=== PATIENT | female | born 1935 | race Caucasian/White ===

== ENCOUNTER 2019-12-06 14:07 | Observation (INO) | payer MEDICARE ==
[~2019-12-06] VITALS: Ht 162.6 cm; Wt 46.0 kg
--- NOTE | 2019-12-06 15:07 | PHYS DOC ---
Past Medical History Past Medical History: Hypertension Past Surgical History: No Surgical History Smoking Status: Former Smoker Alcohol Use: None Adult General Chief Complaint Chief Complaint: Palpitations HPI HPI Patient is a 84 year old female with history of chronic cough who presents with complaint of heart racing. Patient complaining of intermittent episodes of one or 2 seconds palpitation for the last few days without chest pain, dizziness, shortness of breath, nausea and vomiting, focal neuro deficit, diarrhea and constipation, urinary symptom. Patient complaining of chronic cough for years and states she quit smoking more than 10 years ago. Patient was seen at urgent care and had EKG that showed trigeminy PVC and abnormal chest x-ray and sent to ER for evaluation. Patient denies palpitation at arrival to ER but had heart rate of 120s. Review of Systems Review of Systems Constitutional: Denies fever or chills [] Eyes: Denies change in visual acuity, redness, or eye pain [] HENT: Denies nasal congestion or sore throat [] Respiratory: Denies shortness of breath , reports cough[] Cardiovascular: No additional information not addressed in HPI [] GI: Denies abdominal pain, nausea, vomiting, bloody stools or diarrhea [] : Denies dysuria or hematuria [] Musculoskeletal: Denies back pain or joint pain [] Integument: Denies rash or skin lesions [] Neurologic: Denies headache, focal weakness or sensory changes [] Endocrine: Denies polyuria or polydipsia [] All other systems were reviewed and found to be within normal limits, except as documented in this note. Current Medications Current Medications Current Medications Medications (Trade) Dose Ordered Sig/[facility] Start Time Stop Time Status Last Admin Dose Admin Magnesium Oxide (Magnesium Oxide) 400 mg DAILY 12/06/19 17:00 Potassium Chloride (Klor-Con) 40 meq 1X ONCE 12/06/19 16:45 12/06/19 16:46 DC Allergies Allergies Allergies Coded Allergies Type Severity Reaction Last Updated Verified No Known Drug Allergies 12/06/19 No Physical Exam Physical Exam Constitutional: Well developed, well nourished, mild distress, non-toxic appearance. [] HENT: Normocephalic, atraumatic. Eyes: PERRLA, EOMI, conjunctiva normal, no discharge. [] Neck: Normal range of motion, no tenderness, supple, no stridor. [] Cardiovascular: Tachycardia, no murmur [] Lungs & Thorax: Bilateral breath sounds clear to auscultation [] Abdomen: Bowel sounds normal, soft, no tenderness, no masses, no pulsatile masses. [] Skin: Warm, dry, no erythema, no rash. [] Back: No tenderness, no CVA tenderness. [] Extremities: No tenderness, no cyanosis, no clubbing, ROM intact, no edema. [] Neurologic: Alert and oriented X 3, no focal deficits noted. [] Psychologic: Affect normal, judgement normal, mood normal. [] Current Patient Data Vital Signs Vital Signs Date Time Temp Pulse Resp B/P (MAP) Pulse Ox O2 Delivery O2 Flow Rate FiO2 12/06/19 14:47 98.3 69 20 183/82 (115) 95 Room Air 98.3 Lab Values Laboratory Tests Test 12/06/19 14:56 12/06/19 15:24 White Blood Count 8.4 x10^3/uL (4.0-11.0) Red Blood Count 4.64 x10^6/uL (3.50-5.40) Hemoglobin 15.4 g/dL (12.0-15.5) Hematocrit 45.5 % (36.0-47.0) Mean Corpuscular Volume 98 fL (79-100) Mean Corpuscular Hemoglobin 33 pg (25-35) Mean Corpuscular Hemoglobin Concent 34 g/dL (31-37) Red Cell Distribution Width 13.5 % (11.5-14.5) Platelet Count 194 x10^3/uL (140-400) Neutrophils (%) (Auto) 81 % (31-73) H Lymphocytes (%) (Auto) 9 % (24-48) L Monocytes (%) (Auto) 9 % (0-9) Eosinophils (%) (Auto) 0 % (0-3) Basophils (%) (Auto) 1 % (0-3) Neutrophils # (Auto) 6.8 x10^3/uL (1.8-7.7) Lymphocytes # (Auto) 0.8 x10^3/uL (1.0-4.8) L Monocytes # (Auto) 0.8 x10^3/uL (0.0-1.1) Eosinophils # (Auto) 0.0 x10^3/uL (0.0-0.7) Basophils # (Auto) 0.0 x10^3/uL (0.0-0.2) Prothrombin Time 13.8 SEC (11.7-14.0) Prothrombin Time INR 1.1 (0.8-1.1) D-Dimer (Jyothi) 0.38 ug/mlFEU (0.00-0.50) Sodium Level 137 mmol/L (136-145) Potassium Level 3.3 mmol/L (3.5-5.1) L Chloride Level 97 mmol/L (98-107) L Carbon Dioxide Level 29 mmol/L (21-32) Anion Gap 11 (6-14) Blood Urea Nitrogen 15 mg/dL (7-20) Creatinine 1.0 mg/dL (0.6-1.0) Estimated GFR (Cockcroft-Gault) 52.6 BUN/Creatinine Ratio 15 (6-20) Glucose Level 158 mg/dL (70-99) H Calcium Level 9.1 mg/dL (8.5-10.1) Magnesium Level 1.7 mg/dL (1.8-2.4) L Total Bilirubin 0.7 mg/dL (0.2-1.0) Aspartate Amino Transferase (AST) 29 U/L (15-37) Alanine Aminotransferase (ALT) 35 U/L (14-59) Alkaline Phosphatase 90 U/L (46-116) Creatine Kinase 119 U/L (26-192) Troponin I Quantitative < 0.017 ng/mL (0.000-0.055) ZP-Xsw-B-Type Natriuretic Peptide 926 pg/mL (0-449) H Total Protein 7.5 g/dL (6.4-8.2) Albumin 3.3 g/dL (3.4-5.0) L Albumin/Globulin Ratio 0.8 (1.0-1.7) L Thyroid Stimulating Hormone (TSH) 0.703 uIU/mL (0.358-3.74) Lactic Acid Level 1.7 mmol/L (0.4-2.0) Laboratory Tests 12/06/19 14:56 Laboratory Tests 12/06/19 14:56 EKG EKG EKG interpreted by me. EKG at 1434 showed sinus tachycardia at rate of 1:15 beats frequent PVCs as bigeminy and PACs, possible left atrial abnormality, no abnormalities in lateral leads, no acute ST and T-wave elevation. Radiology/Procedures Radiology/Procedures [facility] [address] [place] [address] IMAGING REPORT Signed PATIENT: CORKY HENSON ACCOUNT: [id number] : 1935 LOCATION: ER AGE: 84 SEX: F EXAM STATUS: PRE ER ORD. PHYSICIAN: DARIO GOULD MD REASON: palpitation PROCEDURE: PORTABLE CHEST 1V PORTABLE CHEST 1V History: Palpitations Comparison: None. Findings: Hyperinflation. No consolidation or pleural effusion. Normal heart size. No pneumothorax. Impression: 1. Hyperinflation. 2. Otherwise, negative chest. Electronically signed by: Duane Jane DO (12/06/2019 3:24 PM) [id number] DICTATED and SIGNED BY: DUANE JANE DO DATE: 12/06/19 152 Course & Med Decision Making Course & Med Decision Making Pertinent Labs and Imaging studies reviewed. (See chart for details) Evaluation of patient in ER showed 84-year-old female patient sent from urgent care because of abdominal chest x-ray and tachycardia arrhythmia. Patient had a stable blood pressure and O2 sat laceration but had heart rate of 120s. EKG showed sinus tachycardia with frequent PVCs and PACs. Labs showed mild hypokalemia and hypomagnesemia and oral potassium and magnesium was ordered. Dr. Manzano on-call otr company driver was consulted at 1645 and recommended to admit patient for observation.Patient requiring admission for further evaluation and treatment. Discussed with Dr. Malagon who is in agreement with admission. Discussed findings and plan with patient and family, who acknowledge understanding and agreement. Dragon Disclaimer Dragon Disclaimer This electronic medical record was generated, in whole or in part, using a voice recognition dictation system. Departure Departure Impression: Primary Impression: Tachyarrhythmia Additional Impressions: Hypokalemia Hypomagnesemia CHF (congestive heart failure) Disposition: ADMITTED INPATIENT (at 1710) [facility] (Dr. Malagon accepted admission at 1709) Condition: STABLE Problem Qualifiers Additional Impressions: CHF (congestive heart failure) Heart failure type: unspecified Heart failure chronicity: unspecified Qualified Codes: I50.9 - Heart failure, unspecified DARIO GOULD MD Dec 06, 2019 15:07
[2019-12-06 15:14] LABS: BASO % 1 % (0-3); EOS % 0 % (0-3); HEMATOCRIT 45.5 % (36.0-47.0); HEMOGLOBIN 15.4 g/dL (12.0-15.5); LYMPH # 0.8 x10^3/uL (1.0-4.8); LYMPH % 9 % (24-48); MEAN CORPUSCULAR HEMOGLOBIN 33 pg (25-35); MEAN CORPUSCULAR HGB CONC 34 g/dL (31-37); MEAN CORPUSCULAR VOLUME 98 fL (79-100); MONO # 0.8 x10^3/uL (0.0-1.1); MONO % 9 % (0-9); NEUT # 6.8 x10^3/uL (1.8-7.7); NEUT % 81 % (31-73); PLATELET COUNT 194 x10^3/uL (140-400); RED BLOOD COUNT 4.64 x10^6/uL (3.50-5.40); RED CELL DISTRIBUTION WIDTH 13.5 % (11.5-14.5); WHITE BLOOD COUNT 8.4 x10^3/uL (4.0-11.0)
[2019-12-06 15:23] LABS: PROTHROMBIN TIME PATIENT 13.8 SEC (11.7-14.0)
[2019-12-06 15:26] LABS: CALCIUM 9.1 mg/dL (8.5-10.1); GFR 52.6; POTASSIUM 3.3 mmol/L (3.5-5.1)
--- NOTE | 2019-12-06 15:27 | RAD ---
PORTABLE CHEST 1V History: Palpitations Comparison: None. Findings: Hyperinflation. No consolidation or pleural effusion. Normal heart size. No pneumothorax. Impression: 1. Hyperinflation. 2. Otherwise, negative chest. Electronically signed by: Duane Jane DO (12/06/2019 3:24 PM) [id number]
[2019-12-06 15:31] LABS: D-DIMER 0.38 ug/mlFEU (0.00-0.50)
[2019-12-06 15:36] LABS: ALBUMIN 3.3 g/dL (3.4-5.0); ALBUMIN/GLOBULIN RATIO 0.8 (1.0-1.7); MAGNESIUM 1.7 mg/dL (1.8-2.4); TOTAL BILIRUBIN 0.7 mg/dL (0.2-1.0); TOTAL PROTEIN 7.5 g/dL (6.4-8.2)
[2019-12-06] MEDS ORDERED: POTASSIUM CHLORIDE 20 MEQ TABLET.ER. PO ONE ×2 (16:45→20:30)
[2019-12-06] MEDS: MAGNESIUM OXIDE 400 MG TABLET PO SCH (17:38)
--- NOTE | 2019-12-06 18:20 | PDOC1 ---
History and Physical Date of Admission Date of Admission DATE: 12/06/19 TIME: 18:20 History of Present Illness History of Present Illness Karla is a 84 year old female with history of chronic cough who presents with complaint of heart racing. Patient complaining of intermittent episodes of one or 2 seconds palpitation for the last few days without chest pain, dizziness, shortness of breath, nausea and vomiting, focal neuro deficit, diarrhea and constipation, urinary symptom. Patient complaining of chronic cough for years and states she quit smoking more than 10 years ago. Patient was seen at urgent care and had EKG that showed trigeminy PVC and abnormal chest x-ray and sent to ER for evaluation. Patient denies palpitation at arrival to ER but had heart rate of 120s. Past Medical History Cardiovascular: HTN Pulmonary: No pertinent hx GI: No pertinent hx Heme/Onc: No pertinent hx Hepatobiliary: No pertinent hx Psych: No pertinent hx Rheumatologic: No pertinent hx Infectious disease: No pertinent hx ENT: No pertinent hx Renal/: No pertinent hx Endocrine: No pertinent hx Dermatology: Basal cell, Squamous cell, Rash Social History Smoke: No ALCOHOL: none Current Problem List Problem List Problems Medical Problems: (1) CHF (congestive heart failure) Status: Acute (2) Hypokalemia Status: Acute (3) Hypomagnesemia Status: Acute (4) Tachyarrhythmia Status: Acute Current Medications Current Medications Current Medications Potassium Chloride (Klor-Con) 40 meq 1X ONCE PO Last administered on 12/06/19at 17:38; Start 12/06/19 at 16:45; Stop 12/06/19 at 16:46; Status DC Magnesium Oxide (Magnesium Oxide) 400 mg DAILY PO Last administered on 12/06/19at 17:38; Start 12/06/19 at 17:00 Magnesium Sulfate 50 ml @ 25 mls/hr 1X ONCE IV ; Start 12/06/19 at 18:30; Stop 12/06/19 at 20:29 Allergies Allergies: Coded Allergies: No Known Drug Allergies (Unverified , 12/06/19) ROS General: YES: Chills; No: Night Sweats, Fatigue, Malaise, Appetite, Other PSYCHOLOGICAL ROS: No: Anxiety, Behavioral Disorder, Concentration difficultie, Decreased libido, Depression, Disorientation, Hallucinations, Hostility, Irritablity, Memory difficulties, Mood Swings, Obsessive thoughts, Physical abuse, Sexual abuse, Sleep disturbances, Suicidal ideation, Other Eyes: No Blurry vision, No Decreased vision, No Double vision, No Dry eyes, No Excessive tearing, No Eye Pain, No Itchy Eyes, No Loss of vision, No Photophobia, No Scotomata, No Uses contacts, No Uses glasses, No Other HEENT: No: Heacaches, Visual Changes, Hearing change, Nasal congestion, Nasal discharge, Oral lesions, Sinus pain, Sore Throat, Epistaxis, Sneezing, Snoring, Tinnitus, Vertigo, Vocal changes, Other Respiratory: YES: Cough, SOB with excertion, Tachypnea; No: Hemoptysis, Orthopnea, Pleuritic Pain, Shortness of breath, Sputum Changes, Stridor, Wheezing, Other Cardiovascular: No Chest Pain, No Palpitations, No Orthopnea, No Paroxysmal Noc. Dyspnea, No Edema, No Lt Headedness, No Other Gastrointestinal: No Nausea, No Vomiting, No Abdominal Pain, No Diarrhea, No Constipation, No Melena, No Hematochezia, No Other Genitourinary: No Dysuria, No Frequency, No Incontinence, No Hematuria, No Retention, No Discharge, No Urgency, No Pain, No Flank Pain, No Other, No , No , No , No , No , No , No Musculoskeletal: Yes Joint Stiffness; No Gait Disturbance, No Joint Pain, No Joint Swelling, No Muscle Pain, No Muscular Weakness, No Pain In:, No Swelling In:, No Other Neurological: No Behavorial Changes, No Bowel/Bladder ControlChng, No Confusion, No Dizziness, No Gait Disturbance, No Headaches, No Impaired Coord/balance, No Memory Loss, No Numbness/Tingling, No Seizures, No Speech Problems, No Tremors, No Visual Changes, No Weakness, No Other Skin: Yes Dry Skin; No Eczema, No Hair Changes, No Lumps, No Mole Changes, No Mottling, No Nail Changes, No Pruritus, No Rash, No Skin Lesion Changes, No Other, No Acne Physical Exam General: Alert, Oriented X3, Cooperative, No acute distress, moderate distress HEENT: Mucous membr. moist/pink Lungs: Clear to auscultation, Normal air movement Heart: no gallops, no murmurs, irregularly irregular (tachy) Abdomen: Normal bowel sounds, Soft Extremities: No clubbing, No cyanosis, No edema, Normal pulses Skin: No breakdown, No significant lesion Neuro: Normal speech, Normal tone, Sensation intact, Other Psych/Mental Status: Mood NL Vitals Vitals Vital Signs Date Time Temp Pulse Resp B/P (MAP) Pulse Ox O2 Delivery O2 Flow Rate FiO2 12/06/19 17:07 100 22 163/70 (101) 92 Room Air 12/06/19 14:47 98.3 98.3 Labs Labs Laboratory Tests Test 12/06/19 14:56 12/06/19 15:24 White Blood Count 8.4 x10^3/uL (4.0-11.0) Red Blood Count 4.64 x10^6/uL (3.50-5.40) Hemoglobin 15.4 g/dL (12.0-15.5) Hematocrit 45.5 % (36.0-47.0) Mean Corpuscular Volume 98 fL (79-100) Mean Corpuscular Hemoglobin 33 pg (25-35) Mean Corpuscular Hemoglobin Concent 34 g/dL (31-37) Red Cell Distribution Width 13.5 % (11.5-14.5) Platelet Count 194 x10^3/uL (140-400) Neutrophils (%) (Auto) 81 % (31-73) Lymphocytes (%) (Auto) 9 % (24-48) Monocytes (%) (Auto) 9 % (0-9) Eosinophils (%) (Auto) 0 % (0-3) Basophils (%) (Auto) 1 % (0-3) Neutrophils # (Auto) 6.8 x10^3/uL (1.8-7.7) Lymphocytes # (Auto) 0.8 x10^3/uL (1.0-4.8) Monocytes # (Auto) 0.8 x10^3/uL (0.0-1.1) Eosinophils # (Auto) 0.0 x10^3/uL (0.0-0.7) Basophils # (Auto) 0.0 x10^3/uL (0.0-0.2) Prothrombin Time 13.8 SEC (11.7-14.0) Prothromb Time International Ratio 1.1 (0.8-1.1) D-Dimer (Jyothi) 0.38 ug/mlFEU (0.00-0.50) Sodium Level 137 mmol/L (136-145) Potassium Level 3.3 mmol/L (3.5-5.1) Chloride Level 97 mmol/L (98-107) Carbon Dioxide Level 29 mmol/L (21-32) Anion Gap 11 (6-14) Blood Urea Nitrogen 15 mg/dL (7-20) Creatinine 1.0 mg/dL (0.6-1.0) Estimated GFR (Cockcroft-Gault) 52.6 BUN/Creatinine Ratio 15 (6-20) Glucose Level 158 mg/dL (70-99) Calcium Level 9.1 mg/dL (8.5-10.1) Magnesium Level 1.7 mg/dL (1.8-2.4) Total Bilirubin 0.7 mg/dL (0.2-1.0) Aspartate Amino Transf (AST/SGOT) 29 U/L (15-37) Alanine Aminotransferase (ALT/SGPT) 35 U/L (14-59) Alkaline Phosphatase 90 U/L (46-116) Creatine Kinase 119 U/L (26-192) Troponin I Quantitative < 0.017 ng/mL (0.000-0.055) LL-Jee-S-Type Natriuretic Peptide 926 pg/mL (0-449) Total Protein 7.5 g/dL (6.4-8.2) Albumin 3.3 g/dL (3.4-5.0) Albumin/Globulin Ratio 0.8 (1.0-1.7) Thyroid Stimulating Hormone (TSH) 0.703 uIU/mL (0.358-3.74) Lactic Acid Level 1.7 mmol/L (0.4-2.0) Laboratory Tests Test 12/06/19 14:56 12/06/19 15:24 White Blood Count 8.4 x10^3/uL (4.0-11.0) Red Blood Count 4.64 x10^6/uL (3.50-5.40) Hemoglobin 15.4 g/dL (12.0-15.5) Hematocrit 45.5 % (36.0-47.0) Mean Corpuscular Volume 98 fL (79-100) Mean Corpuscular Hemoglobin 33 pg (25-35) Mean Corpuscular Hemoglobin Concent 34 g/dL (31-37) Red Cell Distribution Width 13.5 % (11.5-14.5) Platelet Count 194 x10^3/uL (140-400) Neutrophils (%) (Auto) 81 % (31-73) Lymphocytes (%) (Auto) 9 % (24-48) Monocytes (%) (Auto) 9 % (0-9) Eosinophils (%) (Auto) 0 % (0-3) Basophils (%) (Auto) 1 % (0-3) Neutrophils # (Auto) 6.8 x10^3/uL (1.8-7.7) Lymphocytes # (Auto) 0.8 x10^3/uL (1.0-4.8) Monocytes # (Auto) 0.8 x10^3/uL (0.0-1.1) Eosinophils # (Auto) 0.0 x10^3/uL (0.0-0.7) Basophils # (Auto) 0.0 x10^3/uL (0.0-0.2) Prothrombin Time 13.8 SEC (11.7-14.0) Prothromb Time International Ratio 1.1 (0.8-1.1) D-Dimer (Jyothi) 0.38 ug/mlFEU (0.00-0.50) Sodium Level 137 mmol/L (136-145) Potassium Level 3.3 mmol/L (3.5-5.1) Chloride Level 97 mmol/L (98-107) Carbon Dioxide Level 29 mmol/L (21-32) Anion Gap 11 (6-14) Blood Urea Nitrogen 15 mg/dL (7-20) Creatinine 1.0 mg/dL (0.6-1.0) Estimated GFR (Cockcroft-Gault) 52.6 BUN/Creatinine Ratio 15 (6-20) Glucose Level 158 mg/dL (70-99) Calcium Level 9.1 mg/dL (8.5-10.1) Magnesium Level 1.7 mg/dL (1.8-2.4) Total Bilirubin 0.7 mg/dL (0.2-1.0) Aspartate Amino Transf (AST/SGOT) 29 U/L (15-37) Alanine Aminotransferase (ALT/SGPT) 35 U/L (14-59) Alkaline Phosphatase 90 U/L (46-116) Creatine Kinase 119 U/L (26-192) Troponin I Quantitative < 0.017 ng/mL (0.000-0.055) JW-Mgd-B-Type Natriuretic Peptide 926 pg/mL (0-449) Total Protein 7.5 g/dL (6.4-8.2) Albumin 3.3 g/dL (3.4-5.0) Albumin/Globulin Ratio 0.8 (1.0-1.7) Thyroid Stimulating Hormone (TSH) 0.703 uIU/mL (0.358-3.74) Lactic Acid Level 1.7 mmol/L (0.4-2.0) VTE Prophylaxis Ordered VTE Prophylaxis Devices: No VTE Pharmacological Prophylaxi: Yes Assessment/Plan Assessment/Plan cough, dyspnea SIRS, tachycardia and tachypnea, unknown cause, check UA, TSH, t4, has hx fo prior thyroid surg in 1989 underweigth, bmi 16.9 hypokalemia hypomagnesemia, replace ckd2 ANNABEL DAMICO MD Dec 06, 2019 18:20
[2019-12-06] MEDS ORDERED: MAGNESIUM SULFATE 2GM 50 ML IV ONE (18:30)
[2019-12-06 18:35] VITALS: BP 190/90
[2019-12-06] MEDS ORDERED: guaiFENesin DM 200MG/20MG 10 ML SYRUP PO PRN (18:45)
[2019-12-06] MEDS ORDERED: METOPROLOL TART IMMED RELEASE 50 MG TABLET. PO ONE (18:45)
[2019-12-06] MEDS ORDERED: ENOXAPARIN 30 MG/0.3 ML SYRINGE. SQ SCH (21:00)
[2019-12-06] MEDS ORDERED: METOPROLOL TART IMMED RELEASE 50 MG TABLET. PO SCH (21:00)
[2019-12-06] MEDS ORDERED: FAMOTIDINE 20 MG TABLET. PO SCH (21:00)
[2019-12-06] MEDS: METOPROLOL TART IMMED RELEASE 50 MG TABLET. PO SCH (22:54)
[2019-12-06] MEDS: BENZONATATE 100 MG CAPSULE. PO SCH (22:56)
[2019-12-06 23:39] VITALS: BP 130/66
[2019-12-07 03:05] VITALS: BP 134/70
[2019-12-07 04:40] LABS: BASO % 1 % (0-3); EOS # 0.1 x10^3/uL (0.0-0.7); EOS % 1 % (0-3); HEMATOCRIT 41.1 % (36.0-47.0); LYMPH % 13 % (24-48); MEAN CORPUSCULAR HEMOGLOBIN 33 pg (25-35); MEAN CORPUSCULAR HGB CONC 34 g/dL (31-37); MEAN CORPUSCULAR VOLUME 98 fL (79-100); MONO # 1.1 x10^3/uL (0.0-1.1); MONO % 14 % (0-9); NEUT # 5.7 x10^3/uL (1.8-7.7); NEUT % 72 % (31-73); PLATELET COUNT 197 x10^3/uL (140-400); RED BLOOD COUNT 4.19 x10^6/uL (3.50-5.40); RED CELL DISTRIBUTION WIDTH 13.4 % (11.5-14.5); WHITE BLOOD COUNT 7.9 x10^3/uL (4.0-11.0)
[2019-12-07 04:51] LABS: ALBUMIN/GLOBULIN RATIO 0.9 (1.0-1.7); CALCIUM 8.5 mg/dL (8.5-10.1); CREATININE 0.7 mg/dL (0.6-1.0); GFR 79.3; POTASSIUM 4.6 mmol/L (3.5-5.1); TOTAL BILIRUBIN 0.7 mg/dL (0.2-1.0); TOTAL PROTEIN 6.3 g/dL (6.4-8.2)
[2019-12-07 07:00] VITALS: BP 141/54
[2019-12-07] MEDS ORDERED: HYDR12.58 PO (07:49)
[2019-12-07] MEDS ORDERED: ZOLP5TAB5 PO (07:49)
[2019-12-07] MEDS ORDERED: ASPI81TA50 PO (07:49)
[2019-12-07] MEDS ORDERED: ATEN25TA PO (07:49)
[2019-12-07] MEDS ORDERED: ASCO1TAB5 PO (07:49)
[2019-12-07] MEDS ORDERED: AMLO5TAB10 PO (07:49)
[2019-12-07] MEDS ORDERED: RALO60TA10 PO (07:49)
[2019-12-07] MEDS ORDERED: POTASSIUM CHLORIDE 20 MEQ TABLET.ER. PO SCH (08:00)
[2019-12-07] MEDS: MAGNESIUM OXIDE 400 MG TABLET PO SCH (08:31)
[2019-12-07] MEDS: METOPROLOL TART IMMED RELEASE 50 MG TABLET. PO SCH (08:31)
[2019-12-07] MEDS: BENZONATATE 100 MG CAPSULE. PO SCH (08:31)
[2019-12-07 11:00] VITALS: BP 147/77
--- NOTE | 2019-12-07 12:33 | PDOC2 ---
CONSULT Date of Consult Date of Consult DATE: 12/07/19 TIME: 12:27 Reason for Consult Reason for Consult: Tachyarrhythmias Referring Physician Referring Physician: Dr. Malagon Identification/Chief Complaint Chief Complaint Fast heartbeat Source Source: Chart review, Patient History of Present Illness Reason for Visit: The patient is an 84-year-old female with a history of hypertension who reported a fast heartbeat at her nursing facility yesterday. She was transported to the emergency room and found to have episodes of sinus tachycardia with rates into the 126 as well as PVCs and some episodes of trigeminy. Potassium was normal at 4.6 troponin was normal magnesium was mildly decreased at 1.7. Chest x-ray showed no acute changes. She was treated with magnesium is been monitored overnight. This morning she is feeling well. Her arrhythmias have resolved. She is on a sinus rhythm rate of 78 and is feeling well. Past Medical History Cardiovascular: HTN Pulmonary: No pertinent hx GI: No pertinent hx Heme/Onc: No pertinent hx Hepatobiliary: No pertinent hx Psych: No pertinent hx Rheumatologic: No pertinent hx Infectious disease: No pertinent hx ENT: No pertinent hx Renal/: No pertinent hx Endocrine: No pertinent hx Dermatology: Basal cell, Squamous cell, Rash Past Surgical History Past Surgical History: No pertinent history Family History Family History: Hypertension Social History No ALCOHOL: none Current Problem List Problem List Problems Medical Problems: (1) CHF (congestive heart failure) Status: Acute (2) Hypokalemia Status: Acute (3) Hypomagnesemia Status: Acute (4) Tachyarrhythmia Status: Acute Current Medications Current Medications Current Medications Potassium Chloride (Klor-Con) 40 meq 1X ONCE PO Last administered on 12/06/19at 17:38; Start 12/06/19 at 16:45; Stop 12/06/19 at 16:46; Status DC Magnesium Oxide (Magnesium Oxide) 400 mg DAILY PO Last administered on 12/07/19at 08:31; Start 12/06/19 at 17:00 Magnesium Sulfate 50 ml @ 25 mls/hr 1X ONCE IV ; Start 12/06/19 at 18:30; Stop 12/06/19 at 20:29; Status DC Metoprolol Tartrate (Lopressor) 50 mg BID PO ; Start 12/06/19 at 21:00; Stop 12/06/19 at 19:29; Status DC Metoprolol Tartrate (Lopressor) 50 mg 1X ONCE PO ; Start 12/06/19 at 18:45; Stop 12/06/19 at 18:49; Status DC Potassium Chloride (Klor-Con) 20 meq [id number] PO Last administered on 12/07/19at 08:32; Start 12/07/19 at 08:00 Famotidine (Pepcid) 20 mg QHS PO Last administered on 12/06/19at 22:57; Start 12/06/19 at 21:00 Benzonatate (Tessalon Perle) 100 mg [id number] PO Last administered on 12/07/19 08:31; Start 12/06/19 at 21:00 Guaifenesin (Robitussin Dm) 10 ml PRN Q6HRS PRN PO COUGH Last administered on 12/07/19at 08:34; Start 12/06/19 at 18:45 Enoxaparin Sodium (Lovenox Per Pharmacy Prophylaxis Dosing) 1 each PRN DAILY PRN MC SEE COMMENTS; Start 12/06/19 at 18:45 Enoxaparin Sodium (Lovenox 30mg Syringe) 30 mg Q24H SQ Last administered on 12/06/19at 23:00; Start 12/06/19 at 21:00 Metoprolol Tartrate (Lopressor) 100 mg BID PO Last administered on 12/07/19at 08:31; Start 12/06/19 at 21:00 Potassium Chloride (Klor-Con) 20 meq 1X ONCE PO Last administered on 12/06/19at 22:55; Start 12/06/19 at 20:30; Stop 12/06/19 at 20:31; Status DC Active Scripts Active Reported Nataliia-C 1,000 Mg Tablet (Ascorbate Calcium/Bioflavonoid) 1 Each Tablet 1 Each PO DAILY Aspir-Low (Aspirin) 81 Mg Tablet.dr 1 Tab PO BID Zolpidem Tartrate 5 Mg Tablet 5 Mg PO PRN QHS PRN Raloxifene HCl 60 Mg Tablet 60 Mg PO DAILY Amlodipine Besylate 5 Mg Tablet 5 Mg PO DAILY Hydrochlorothiazide Tablet (Hydrochlorothiazide) 12.5 Mg Tablet 12.5 Mg PO DAILY Atenolol 25 Mg Tablet 1 Tab PO DAILY Allergies Allergies: Coded Allergies: No Known Drug Allergies (Unverified , 12/06/19) ROS General: YES: Fatigue Cardiovascular: yes Palpitations Physical Exam General: No acute distress HEENT: Atraumatic Lungs: Clear to auscultation Heart: Regular rate Abdomen: Normal bowel sounds Vitals VITALS Vital Signs Date Time Temp Pulse Resp B/P (MAP) Pulse Ox O2 Delivery O2 Flow Rate FiO2 12/07/19 11:00 97.9 71 18 147/77 (100) 92 Room Air 97.9 Labs Labs Laboratory Tests Test 12/06/19 14:56 12/06/19 15:24 12/07/19 02:50 White Blood Count 8.4 x10^3/uL (4.0-11.0) 7.9 x10^3/uL (4.0-11.0) Red Blood Count 4.64 x10^6/uL (3.50-5.40) 4.19 x10^6/uL (3.50-5.40) Hemoglobin 15.4 g/dL (12.0-15.5) 14.0 g/dL (12.0-15.5) Hematocrit 45.5 % (36.0-47.0) 41.1 % (36.0-47.0) Mean Corpuscular Volume 98 fL (79-100) 98 fL (79-100) Mean Corpuscular Hemoglobin 33 pg (25-35) 33 pg (25-35) Mean Corpuscular Hemoglobin Concent 34 g/dL (31-37) 34 g/dL (31-37) Red Cell Distribution Width 13.5 % (11.5-14.5) 13.4 % (11.5-14.5) Platelet Count 194 x10^3/uL (140-400) 197 x10^3/uL (140-400) Neutrophils (%) (Auto) 81 % (31-73) 72 % (31-73) Lymphocytes (%) (Auto) 9 % (24-48) 13 % (24-48) Monocytes (%) (Auto) 9 % (0-9) 14 % (0-9) Eosinophils (%) (Auto) 0 % (0-3) 1 % (0-3) Basophils (%) (Auto) 1 % (0-3) 1 % (0-3) Neutrophils # (Auto) 6.8 x10^3/uL (1.8-7.7) 5.7 x10^3/uL (1.8-7.7) Lymphocytes # (Auto) 0.8 x10^3/uL (1.0-4.8) 1.0 x10^3/uL (1.0-4.8) Monocytes # (Auto) 0.8 x10^3/uL (0.0-1.1) 1.1 x10^3/uL (0.0-1.1) Eosinophils # (Auto) 0.0 x10^3/uL (0.0-0.7) 0.1 x10^3/uL (0.0-0.7) Basophils # (Auto) 0.0 x10^3/uL (0.0-0.2) 0.0 x10^3/uL (0.0-0.2) Prothrombin Time 13.8 SEC (11.7-14.0) Prothromb Time International Ratio 1.1 (0.8-1.1) D-Dimer (Jyothi) 0.38 ug/mlFEU (0.00-0.50) Sodium Level 137 mmol/L (136-145) 139 mmol/L (136-145) Potassium Level 3.3 mmol/L (3.5-5.1) 4.6 mmol/L (3.5-5.1) Chloride Level 97 mmol/L (98-107) 101 mmol/L (98-107) Carbon Dioxide Level 29 mmol/L (21-32) 29 mmol/L (21-32) Anion Gap 11 (6-14) 9 (6-14) Blood Urea Nitrogen 15 mg/dL (7-20) 16 mg/dL (7-20) Creatinine 1.0 mg/dL (0.6-1.0) 0.7 mg/dL (0.6-1.0) Estimated GFR (Cockcroft-Gault) 52.6 79.3 BUN/Creatinine Ratio 15 (6-20) 23 (6-20) Glucose Level 158 mg/dL (70-99) 102 mg/dL (70-99) Calcium Level 9.1 mg/dL (8.5-10.1) 8.5 mg/dL (8.5-10.1) Magnesium Level 1.7 mg/dL (1.8-2.4) Total Bilirubin 0.7 mg/dL (0.2-1.0) 0.7 mg/dL (0.2-1.0) Aspartate Amino Transf (AST/SGOT) 29 U/L (15-37) 31 U/L (15-37) Alanine Aminotransferase (ALT/SGPT) 35 U/L (14-59) 38 U/L (14-59) Alkaline Phosphatase 90 U/L (46-116) 79 U/L (46-116) Creatine Kinase 119 U/L (26-192) Troponin I Quantitative < 0.017 ng/mL (0.000-0.055) OB-Lru-J-Type Natriuretic Peptide 926 pg/mL (0-449) Total Protein 7.5 g/dL (6.4-8.2) 6.3 g/dL (6.4-8.2) Albumin 3.3 g/dL (3.4-5.0) 3.0 g/dL (3.4-5.0) Albumin/Globulin Ratio 0.8 (1.0-1.7) 0.9 (1.0-1.7) Thyroid Stimulating Hormone (TSH) 0.703 uIU/mL (0.358-3.74) Lactic Acid Level 1.7 mmol/L (0.4-2.0) Free Thyroxine 1.49 ng/dL (0.76-1.46) Laboratory Tests Test 12/06/19 14:56 12/06/19 15:24 12/07/19 02:50 White Blood Count 8.4 x10^3/uL (4.0-11.0) 7.9 x10^3/uL (4.0-11.0) Red Blood Count 4.64 x10^6/uL (3.50-5.40) 4.19 x10^6/uL (3.50-5.40) Hemoglobin 15.4 g/dL (12.0-15.5) 14.0 g/dL (12.0-15.5) Hematocrit 45.5 % (36.0-47.0) 41.1 % (36.0-47.0) Mean Corpuscular Volume 98 fL (79-100) 98 fL (79-100) Mean Corpuscular Hemoglobin 33 pg (25-35) 33 pg (25-35) Mean Corpuscular Hemoglobin Concent 34 g/dL (31-37) 34 g/dL (31-37) Red Cell Distribution Width 13.5 % (11.5-14.5) 13.4 % (11.5-14.5) Platelet Count 194 x10^3/uL (140-400) 197 x10^3/uL (140-400) Neutrophils (%) (Auto) 81 % (31-73) 72 % (31-73) Lymphocytes (%) (Auto) 9 % (24-48) 13 % (24-48) Monocytes (%) (Auto) 9 % (0-9) 14 % (0-9) Eosinophils (%) (Auto) 0 % (0-3) 1 % (0-3) Basophils (%) (Auto) 1 % (0-3) 1 % (0-3) Neutrophils # (Auto) 6.8 x10^3/uL (1.8-7.7) 5.7 x10^3/uL (1.8-7.7) Lymphocytes # (Auto) 0.8 x10^3/uL (1.0-4.8) 1.0 x10^3/uL (1.0-4.8) Monocytes # (Auto) 0.8 x10^3/uL (0.0-1.1) 1.1 x10^3/uL (0.0-1.1) Eosinophils # (Auto) 0.0 x10^3/uL (0.0-0.7) 0.1 x10^3/uL (0.0-0.7) Basophils # (Auto) 0.0 x10^3/uL (0.0-0.2) 0.0 x10^3/uL (0.0-0.2) Prothrombin Time 13.8 SEC (11.7-14.0) Prothromb Time International Ratio 1.1 (0.8-1.1) D-Dimer (Jyothi) 0.38 ug/mlFEU (0.00-0.50) Sodium Level 137 mmol/L (136-145) 139 mmol/L (136-145) Potassium Level 3.3 mmol/L (3.5-5.1) 4.6 mmol/L (3.5-5.1) Chloride Level 97 mmol/L (98-107) 101 mmol/L (98-107) Carbon Dioxide Level 29 mmol/L (21-32) 29 mmol/L (21-32) Anion Gap 11 (6-14) 9 (6-14) Blood Urea Nitrogen 15 mg/dL (7-20) 16 mg/dL (7-20) Creatinine 1.0 mg/dL (0.6-1.0) 0.7 mg/dL (0.6-1.0) Estimated GFR (Cockcroft-Gault) 52.6 79.3 BUN/Creatinine Ratio 15 (6-20) 23 (6-20) Glucose Level 158 mg/dL (70-99) 102 mg/dL (70-99) Calcium Level 9.1 mg/dL (8.5-10.1) 8.5 mg/dL (8.5-10.1) Magnesium Level 1.7 mg/dL (1.8-2.4) Total Bilirubin 0.7 mg/dL (0.2-1.0) 0.7 mg/dL (0.2-1.0) Aspartate Amino Transf (AST/SGOT) 29 U/L (15-37) 31 U/L (15-37) Alanine Aminotransferase (ALT/SGPT) 35 U/L (14-59) 38 U/L (14-59) Alkaline Phosphatase 90 U/L (46-116) 79 U/L (46-116) Creatine Kinase 119 U/L (26-192) Troponin I Quantitative < 0.017 ng/mL (0.000-0.055) RV-Wwu-V-Type Natriuretic Peptide 926 pg/mL (0-449) Total Protein 7.5 g/dL (6.4-8.2) 6.3 g/dL (6.4-8.2) Albumin 3.3 g/dL (3.4-5.0) 3.0 g/dL (3.4-5.0) Albumin/Globulin Ratio 0.8 (1.0-1.7) 0.9 (1.0-1.7) Thyroid Stimulating Hormone (TSH) 0.703 uIU/mL (0.358-3.74) Lactic Acid Level 1.7 mmol/L (0.4-2.0) Free Thyroxine 1.49 ng/dL (0.76-1.46) Images Images Chest x-ray x-ray shows no acute changes. Assessment/Plan Assessment/Plan 1. Palpitations and tachycardia arrhythmias. Initial EKG and monitoring shows sinus tachycardia along with increased PVCs and episodes of trigeminy. Patient's magnesium was mildly decreased. Her magnesium was replaced and she was continued on baseline treatment. This morning she is feeling well. Her rhythm is stable. Will increase activities and present medications. We'll follow-up as an outpatient. 2. Hypertension. Blood pressures under better control. Will monitor as the patient increases her activities. Thank you for allowing us to participate in the care of your patient. KAROL CASTAÑEDA MD Dec 07, 2019 12:33
[2019-12-07] MEDS ORDERED: ZOLPIDEM 5 MG TABLET. PO PRN (13:45)
[2019-12-07] MEDS ORDERED: MAGN400C PO (13:47)
[2019-12-07] MEDS ORDERED: hydroCHLOROthiazide 12.5 MG CAPSULE PO SCH (14:00)
[2019-12-07] MEDS ORDERED: RALOXIFENE 60 MG TABLET. PO SCH (14:00)
[2019-12-07] MEDS ORDERED: amLODIPine BESYLATE 5 MG TABLET PO SCH (14:00)
[2019-12-07] MEDS ORDERED: ATENOLOL 25 MG TABLET. PO SCH (14:00)
--- NOTE | 2019-12-07 14:00 | NUR ---
Discharge Note: CORKY HENSON Discharge instructions and discharge home medications reviewed with Patient and a copy given. All questions have been answered and understanding verbalized. The following instructions and handouts were given: follow ups Discontinued lines and drains:20 R AC Patient discharged to home with self care
--- NOTE | 2019-12-07 14:20 | PDOC3 ---
Discharge Summary Visit Information Date of Admission: Dec 06, 2019 Date of Discharge: Dec 07, 2019 Admitting Diagnosis Comment: Palpitations Essential hypertension Hypomagnesemia replace Chronic kidney disease stage II Final Diagnosis Problems Medical Problems: (1) CHF (congestive heart failure) Status: Acute (2) Hypokalemia Status: Acute (3) Hypomagnesemia Status: Acute (4) Tachyarrhythmia Status: Acute Brief Hospital Course Allergies Allergies Coded Allergies Type Severity Reaction Last Updated Verified No Known Drug Allergies 12/06/19 No Vital Signs Vital Signs Date Time Temp Pulse Resp B/P (MAP) Pulse Ox O2 Delivery O2 Flow Rate FiO2 12/07/19 11:00 97.9 71 18 147/77 (100) 92 Room Air 97.9 Lab Results Laboratory Tests Test 12/06/19 14:56 12/06/19 15:24 12/07/19 02:50 White Blood Count 8.4 x10^3/uL (4.0-11.0) 7.9 x10^3/uL (4.0-11.0) Red Blood Count 4.64 x10^6/uL (3.50-5.40) 4.19 x10^6/uL (3.50-5.40) Hemoglobin 15.4 g/dL (12.0-15.5) 14.0 g/dL (12.0-15.5) Hematocrit 45.5 % (36.0-47.0) 41.1 % (36.0-47.0) Mean Corpuscular Volume 98 fL (79-100) 98 fL (79-100) Mean Corpuscular Hemoglobin 33 pg (25-35) 33 pg (25-35) Mean Corpuscular Hemoglobin Concent 34 g/dL (31-37) 34 g/dL (31-37) Red Cell Distribution Width 13.5 % (11.5-14.5) 13.4 % (11.5-14.5) Platelet Count 194 x10^3/uL (140-400) 197 x10^3/uL (140-400) Neutrophils (%) (Auto) 81 % (31-73) 72 % (31-73) Lymphocytes (%) (Auto) 9 % (24-48) 13 % (24-48) Monocytes (%) (Auto) 9 % (0-9) 14 % (0-9) Eosinophils (%) (Auto) 0 % (0-3) 1 % (0-3) Basophils (%) (Auto) 1 % (0-3) 1 % (0-3) Neutrophils # (Auto) 6.8 x10^3/uL (1.8-7.7) 5.7 x10^3/uL (1.8-7.7) Lymphocytes # (Auto) 0.8 x10^3/uL (1.0-4.8) 1.0 x10^3/uL (1.0-4.8) Monocytes # (Auto) 0.8 x10^3/uL (0.0-1.1) 1.1 x10^3/uL (0.0-1.1) Eosinophils # (Auto) 0.0 x10^3/uL (0.0-0.7) 0.1 x10^3/uL (0.0-0.7) Basophils # (Auto) 0.0 x10^3/uL (0.0-0.2) 0.0 x10^3/uL (0.0-0.2) Prothrombin Time 13.8 SEC (11.7-14.0) Prothromb Time International Ratio 1.1 (0.8-1.1) D-Dimer (Jyothi) 0.38 ug/mlFEU (0.00-0.50) Sodium Level 137 mmol/L (136-145) 139 mmol/L (136-145) Potassium Level 3.3 mmol/L (3.5-5.1) 4.6 mmol/L (3.5-5.1) Chloride Level 97 mmol/L (98-107) 101 mmol/L (98-107) Carbon Dioxide Level 29 mmol/L (21-32) 29 mmol/L (21-32) Anion Gap 11 (6-14) 9 (6-14) Blood Urea Nitrogen 15 mg/dL (7-20) 16 mg/dL (7-20) Creatinine 1.0 mg/dL (0.6-1.0) 0.7 mg/dL (0.6-1.0) Estimated GFR (Cockcroft-Gault) 52.6 79.3 BUN/Creatinine Ratio 15 (6-20) 23 (6-20) Glucose Level 158 mg/dL (70-99) 102 mg/dL (70-99) Calcium Level 9.1 mg/dL (8.5-10.1) 8.5 mg/dL (8.5-10.1) Magnesium Level 1.7 mg/dL (1.8-2.4) Total Bilirubin 0.7 mg/dL (0.2-1.0) 0.7 mg/dL (0.2-1.0) Aspartate Amino Transf (AST/SGOT) 29 U/L (15-37) 31 U/L (15-37) Alanine Aminotransferase (ALT/SGPT) 35 U/L (14-59) 38 U/L (14-59) Alkaline Phosphatase 90 U/L (46-116) 79 U/L (46-116) Creatine Kinase 119 U/L (26-192) Troponin I Quantitative < 0.017 ng/mL (0.000-0.055) SV-Pgi-P-Type Natriuretic Peptide 926 pg/mL (0-449) Total Protein 7.5 g/dL (6.4-8.2) 6.3 g/dL (6.4-8.2) Albumin 3.3 g/dL (3.4-5.0) 3.0 g/dL (3.4-5.0) Albumin/Globulin Ratio 0.8 (1.0-1.7) 0.9 (1.0-1.7) Thyroid Stimulating Hormone (TSH) 0.703 uIU/mL (0.358-3.74) Lactic Acid Level 1.7 mmol/L (0.4-2.0) Free Thyroxine 1.49 ng/dL (0.76-1.46) Laboratory Tests Test 12/06/19 14:56 12/06/19 15:24 12/07/19 02:50 White Blood Count 8.4 x10^3/uL (4.0-11.0) 7.9 x10^3/uL (4.0-11.0) Red Blood Count 4.64 x10^6/uL (3.50-5.40) 4.19 x10^6/uL (3.50-5.40) Hemoglobin 15.4 g/dL (12.0-15.5) 14.0 g/dL (12.0-15.5) Hematocrit 45.5 % (36.0-47.0) 41.1 % (36.0-47.0) Mean Corpuscular Volume 98 fL (79-100) 98 fL (79-100) Mean Corpuscular Hemoglobin 33 pg (25-35) 33 pg (25-35) Mean Corpuscular Hemoglobin Concent 34 g/dL (31-37) 34 g/dL (31-37) Red Cell Distribution Width 13.5 % (11.5-14.5) 13.4 % (11.5-14.5) Platelet Count 194 x10^3/uL (140-400) 197 x10^3/uL (140-400) Neutrophils (%) (Auto) 81 % (31-73) 72 % (31-73) Lymphocytes (%) (Auto) 9 % (24-48) 13 % (24-48) Monocytes (%) (Auto) 9 % (0-9) 14 % (0-9) Eosinophils (%) (Auto) 0 % (0-3) 1 % (0-3) Basophils (%) (Auto) 1 % (0-3) 1 % (0-3) Neutrophils # (Auto) 6.8 x10^3/uL (1.8-7.7) 5.7 x10^3/uL (1.8-7.7) Lymphocytes # (Auto) 0.8 x10^3/uL (1.0-4.8) 1.0 x10^3/uL (1.0-4.8) Monocytes # (Auto) 0.8 x10^3/uL (0.0-1.1) 1.1 x10^3/uL (0.0-1.1) Eosinophils # (Auto) 0.0 x10^3/uL (0.0-0.7) 0.1 x10^3/uL (0.0-0.7) Basophils # (Auto) 0.0 x10^3/uL (0.0-0.2) 0.0 x10^3/uL (0.0-0.2) Prothrombin Time 13.8 SEC (11.7-14.0) Prothromb Time International Ratio 1.1 (0.8-1.1) D-Dimer (Jyothi) 0.38 ug/mlFEU (0.00-0.50) Sodium Level 137 mmol/L (136-145) 139 mmol/L (136-145) Potassium Level 3.3 mmol/L (3.5-5.1) 4.6 mmol/L (3.5-5.1) Chloride Level 97 mmol/L (98-107) 101 mmol/L (98-107) Carbon Dioxide Level 29 mmol/L (21-32) 29 mmol/L (21-32) Anion Gap 11 (6-14) 9 (6-14) Blood Urea Nitrogen 15 mg/dL (7-20) 16 mg/dL (7-20) Creatinine 1.0 mg/dL (0.6-1.0) 0.7 mg/dL (0.6-1.0) Estimated GFR (Cockcroft-Gault) 52.6 79.3 BUN/Creatinine Ratio 15 (6-20) 23 (6-20) Glucose Level 158 mg/dL (70-99) 102 mg/dL (70-99) Calcium Level 9.1 mg/dL (8.5-10.1) 8.5 mg/dL (8.5-10.1) Magnesium Level 1.7 mg/dL (1.8-2.4) Total Bilirubin 0.7 mg/dL (0.2-1.0) 0.7 mg/dL (0.2-1.0) Aspartate Amino Transf (AST/SGOT) 29 U/L (15-37) 31 U/L (15-37) Alanine Aminotransferase (ALT/SGPT) 35 U/L (14-59) 38 U/L (14-59) Alkaline Phosphatase 90 U/L (46-116) 79 U/L (46-116) Creatine Kinase 119 U/L (26-192) Troponin I Quantitative < 0.017 ng/mL (0.000-0.055) RK-Zee-G-Type Natriuretic Peptide 926 pg/mL (0-449) Total Protein 7.5 g/dL (6.4-8.2) 6.3 g/dL (6.4-8.2) Albumin 3.3 g/dL (3.4-5.0) 3.0 g/dL (3.4-5.0) Albumin/Globulin Ratio 0.8 (1.0-1.7) 0.9 (1.0-1.7) Thyroid Stimulating Hormone (TSH) 0.703 uIU/mL (0.358-3.74) Lactic Acid Level 1.7 mmol/L (0.4-2.0) Free Thyroxine 1.49 ng/dL (0.76-1.46) Brief Hospital Course The patient is an 84-year-old female with a history of hypertension who reported a fast heartbeat at her nursing facility yesterday. She was transported to the emergency room and found to have episodes of sinus tachycardia with rates into the 126 as well as PVCs and some episodes of trigeminy. Potassium was normal at 4.6 troponin was normal magnesium was mildly decreased at 1.7. Chest x-ray showed no acute changes. She was treated with magnesium is been monitored overnight. This morning she is feeling well. Her arrhythmias have resolved. She is on a sinus rhythm rate of 78 and is feeling well. She was in consultation by cardiology who recommended following up in the outpatient no further diagnostic workup was deemed appropriate at the present time. Patient was in good spirits as far as her cough goes patient does not seem to have an active infectious process. I encouraged her to monitor for symptoms of GERD postnasal drip that could prompt her dry coughing spells. No pleurisy reported, the patient in her and notch understanding of all the instructions. Physical exam Lungs are clear to auscultation bilaterally with good inspiratory effort and Cardia vascular S1-S2 regular rhythm no murmurs calls or rubs Neuro cranial nerves II-12 intact motor or sensory deficits were appreciated Discharge Information Condition at Discharge: Improved Follow Up: Weeks Disposition/Orders: D/C to Home Scheduled Amlodipine Besylate (Amlodipine Besylate) 5 Mg Tablet, 5 MG PO DAILY for htn, (Reported) Entered as Reported by: MARVIN HAMMONDS on 12/07/19748 Last Action: Continued on 12/07/191337 by CAROLYN RODRIGUEZ MD Ascorbate Calcium/Bioflavonoid (Nataliia-C 1,000 Mg Tablet) 1 Each Tablet, 1 EACH PO DAILY for vitamin, (Reported) Entered as Reported by: MARVIN HAMMONDS on 12/07/19748 Last Action: Converted on 12/07/191337 by CAROLYN RODRIGUEZ MD Aspirin (Aspir-Low) 81 Mg Tablet.dr, 1 TAB PO BID for antiplatelet, #30 Ref 3 (Reported) Entered as Reported by: MARVIN HAMMONDS on 12/07/19748 Last Taken: Unknown Dose on Unknown Date & Time Last Action: Continued on 12/07/191337 by CAROLYN RODRIGUEZ MD Atenolol (Atenolol) 25 Mg Tablet, 1 TAB PO DAILY for tachycardia, #30 Ref 5 (Reported) Entered as Reported by: MARVIN HAMMONDS on 12/07/19748 Last Taken: Unknown Dose on Unknown Date & Time Last Action: Continued on 12/07/191337 by CAROLYN RODRIGUEZ MD Hydrochlorothiazide (Hydrochlorothiazide Tablet) 12.5 Mg Tablet, 12.5 MG PO DAILY for blood pressure, Ref 0 (Reported) Entered as Reported by: MARVIN HAMMONDS on 12/07/19748 Last Taken: Unknown Dose on Unknown Date & Time Last Action: Converted on 12/07/191337 by CAROLYN RODRIGUEZ MD Magnesium Oxide (Magnesium) 400 Mg Capsule, 1 CAP PO DAILY for supplement for 30 Days, #30 Ref 0 Prescribed by: CAROLYN RODRIGUEZ MD on 12/07/191346 Raloxifene HCl (Raloxifene HCl) 60 Mg Tablet, 60 MG PO DAILY for hormone replacement, (Reported) Entered as Reported by: MARVIN HAMMONDS on 12/07/19748 Last Taken: Unknown Dose on Unknown Date & Time Last Action: Continued on 12/07/191337 by CAROLYN RODRIGUEZ MD Scheduled PRN Zolpidem Tartrate (Zolpidem Tartrate) 5 Mg Tablet, 5 MG PO PRN QHS PRN for INSOMNIA, Ref 0 (Reported) Entered as Reported by: MARVIN HAMMONDS on 12/07/19748 Last Taken: Unknown Dose on Unknown Date & Time Last Action: Continued on 12/07/191337 by MD JENNIFER ELI HECTOR M MD Dec 07, 2019 14:20
[2019-12-07] MEDS ORDERED: ASPIRIN ENTERIC COATED 81 MG TABLET.DR. PO SCH (21:00)
[2019-12-08] MEDS ORDERED: ASCORBIC ACID 500 MG TABLET PO SCH (09:00)
--- NOTE | 2019-12-09 06:08 | EKG ---
[facility] [address] [place] [address] Test Date: 2019-12-06 Test Time: 14:34:27 Pat Name: CORKY HENSON Department: Room: Gender: F [employer]: : [id number] Requested By: DARIO GOULD Order Number: [id number] Reading MD: Measurements Intervals [place] Rate: 115 P: 62 [place]: 114 QRS: 25 QRSD: 80 T: 63 QT: 314 QTc: 436 Interpretive Statements SINUS TACHYCARDIA VENTRICULAR PREMATURE COMPLEX(ES) ATRIAL PREMATURE COMPLEX(ES), BIGEMINY POSSIBLE LEFT ATRIAL ABNORMALITY T ABNORMALITY IN HIGH LATERAL LEADS ABNORMAL ECG RI6.01 No previous ECG available for comparison
== END 2019-12-07 14:00 | disposition home or self-care (01) ==
LOC: ER 14:07 → ED HOLD 16:46 → ER 18:33 → 2 NORTH 18:45
PROVIDERS: ADMIT Internal Medicine; ATTEND Internal Medicine
DX: I13.0 Hypertensive heart and chronic kidney disease with heart failure and stage 1 through stage 4 chronic kidney disease, or unspecified chronic kidney disease (principal); N18.2 Chronic kidney disease, stage 2 (mild); I50.9 Heart failure, unspecified; R65.10 Systemic inflammatory response syndrome (SIRS) of non-infectious origin without acute organ dysfunction; E83.42 Hypomagnesemia; R00.0 Tachycardia, unspecified; E87.6 Hypokalemia; R63.6 Underweight; Z68.1 Body mass index [BMI] 19.9 or less, adult; Z87.891 Personal history of nicotine dependence
CPT/HCPCS: 36415; 71045; 80053; 82533; 82550; 83605; 83735; 83880; 84439; 84443; 84484; 85025; 85379; 85610; 93005; 96372; 99284; G0378; J1650; G0379

== ENCOUNTER 2019-12-11 01:52 | Inpatient (IN) | payer MEDICARE ==
[~2019-12-11] VITALS: Ht 160 cm; Wt 46.3 kg
[~2019-12-11 01:52] MED LIST: AMLO5TAB10 PO; ASCO1TAB5 PO; ASPI81TA50 PO; ATEN25TA PO; HYDR12.58 PO; MAGN400C PO; RALO60TA10 PO; ZOLP5TAB5 PO
[2019-12-11 02:38] LABS: BASO % 0 % (0-3); EOS # 0.2 x10^3/uL (0.0-0.7); EOS % 3 % (0-3); HEMATOCRIT 40.5 % (36.0-47.0); HEMOGLOBIN 13.5 g/dL (12.0-15.5); LYMPH % 14 % (24-48); MEAN CORPUSCULAR HEMOGLOBIN 33 pg (25-35); MEAN CORPUSCULAR HGB CONC 33 g/dL (31-37); MEAN CORPUSCULAR VOLUME 98 fL (79-100); MONO # 0.9 x10^3/uL (0.0-1.1); MONO % 12 % (0-9); NEUT # 5.4 x10^3/uL (1.8-7.7); NEUT % 71 % (31-73); PLATELET COUNT 236 x10^3/uL (140-400); RED BLOOD COUNT 4.13 x10^6/uL (3.50-5.40); RED CELL DISTRIBUTION WIDTH 13.5 % (11.5-14.5); WHITE BLOOD COUNT 7.5 x10^3/uL (4.0-11.0)
--- NOTE | 2019-12-11 03:02 | RAD ---
CHEST AP ONLY Clinical Indication: Shortness of air. Comparison: AP chest 12/06/2019. Findings: The cardiomediastinal silhouette is normal. Lungs are hyperexpanded. Lungs are clear. There is no pneumothorax. No pleural effusion is appreciated. No acute bone abnormality. IMPRESSION: No acute cardiopulmonary process. Electronically signed by: Dyllan Ruiz MD (12/11/2019 3:00 AM) [id number]
--- NOTE | 2019-12-11 03:30 | PHYS DOC ---
Past Medical History Past Medical History: Hypertension Past Surgical History: No Surgical History Smoking Status: Former Smoker Alcohol Use: None Adult General Chief Complaint Chief Complaint: RAPID HEART RATE HPI HPI Patient is a 84 year old female history of palpitations, A. fib and hypomagnesemia who presents with generalized weakness and palpitations starting 10 hours prior to ED arrival. Patient was admitted to this facility last week for the same was noted to be on trigeminy. Patient bigeminy on ED arrival today. Patient is on antiarrhythmic medication is compliant with treatment. Denies dizziness lightheadedness, chest pain, shortness of breath. Denies increased leg pain or swelling. No other acute symptoms or complaints. Additional history obtained from the patient's family members at bedside.[] Review of Systems Review of Systems ROS as per HPI. All other systems were reviewed and found to be within normal limits, except as documented in this note. Current Medications Current Medications Current Medications Medications (Trade) Dose Ordered Sig/Kenzie Start Time Stop Time Status Last Admin Dose Admin Magnesium Sulfate 50 ml @ 25 mls/hr 1X ONCE 12/11/19 04:45 12/11/19 06:44 Allergies Allergies Allergies Coded Allergies Type Severity Reaction Last Updated Verified No Known Drug Allergies 12/06/19 No Physical Exam Physical Exam Constitutional: Well developed, well nourished, no acute distress, non-toxic appearance. [] HENT: Normocephalic, atraumatic, bilateral external ears normal, oropharynx moist, no oral exudates, nose normal. [] Eyes: PERRLA, EOMI, conjunctiva normal, no discharge. [] Neck: Normal range of motion, no tenderness, supple, no stridor. [] Cardiovascular: Tachycardia, frequent ectopy[] Lungs & Thorax: Bilateral breath sounds clear to auscultation [] Abdomen: Bowel sounds normal. [] Skin: Warm, dry, no erythema, no rash. [] Back: No tenderness. [] Extremities: No tenderness. [] Neurologic: Alert and oriented X 3, normal motor function, normal sensory function, no focal deficits noted. [] Psychologic: Affect normal, judgement normal, mood normal. [] Current Patient Data Vital Signs Vital Signs Date Time Temp Pulse Resp B/P (MAP) Pulse Ox O2 Delivery O2 Flow Rate FiO2 12/11/19 01:55 98.4 17 147/77 (100) 97 Nasal Cannula 2.0 98.4 Lab Values Laboratory Tests Test 12/11/19 02:28 12/11/19 03:45 White Blood Count 7.5 x10^3/uL (4.0-11.0) Red Blood Count 4.13 x10^6/uL (3.50-5.40) Hemoglobin 13.5 g/dL (12.0-15.5) Hematocrit 40.5 % (36.0-47.0) Mean Corpuscular Volume 98 fL (79-100) Mean Corpuscular Hemoglobin 33 pg (25-35) Mean Corpuscular Hemoglobin Concent 33 g/dL (31-37) Red Cell Distribution Width 13.5 % (11.5-14.5) Platelet Count 236 x10^3/uL (140-400) Neutrophils (%) (Auto) 71 % (31-73) Lymphocytes (%) (Auto) 14 % (24-48) L Monocytes (%) (Auto) 12 % (0-9) H Eosinophils (%) (Auto) 3 % (0-3) Basophils (%) (Auto) 0 % (0-3) Neutrophils # (Auto) 5.4 x10^3/uL (1.8-7.7) Lymphocytes # (Auto) 1.0 x10^3/uL (1.0-4.8) Monocytes # (Auto) 0.9 x10^3/uL (0.0-1.1) Eosinophils # (Auto) 0.2 x10^3/uL (0.0-0.7) Basophils # (Auto) 0.0 x10^3/uL (0.0-0.2) Sodium Level 134 mmol/L (136-145) L Potassium Level 3.8 mmol/L (3.5-5.1) Chloride Level 99 mmol/L (98-107) Carbon Dioxide Level 31 mmol/L (21-32) Anion Gap 4 (6-14) L Blood Urea Nitrogen 15 mg/dL (7-20) Creatinine 0.7 mg/dL (0.6-1.0) Estimated GFR (Cockcroft-Gault) 79.3 BUN/Creatinine Ratio 21 (6-20) H Glucose Level 115 mg/dL (70-99) H Calcium Level 8.7 mg/dL (8.5-10.1) Magnesium Level 1.7 mg/dL (1.8-2.4) L Total Bilirubin 0.3 mg/dL (0.2-1.0) Aspartate Amino Transferase (AST) 24 U/L (15-37) Alanine Aminotransferase (ALT) 28 U/L (14-59) Alkaline Phosphatase 67 U/L (46-116) Troponin I Quantitative < 0.017 ng/mL (0.000-0.055) GS-Xwe-U-Type Natriuretic Peptide 742 pg/mL (0-449) H Total Protein 6.4 g/dL (6.4-8.2) Albumin 2.7 g/dL (3.4-5.0) L Albumin/Globulin Ratio 0.7 (1.0-1.7) L Thyroid Stimulating Hormone (TSH) 1.068 uIU/mL (0.358-3.74) Laboratory Tests 12/11/19 02:28 Laboratory Tests 12/11/19 03:45 EKG EKG [EKG: Bigeminy, tachycardia,] Radiology/Procedures Radiology/Procedures [CXR: ] Course & Med Decision Making Course & Med Decision Making Pertinent Labs and Imaging studies reviewed. (See chart for details) Bigeminy. Magnesium replaced. Will admit to the hospitalist service with] cardiology consult. Dragon Disclaimer Dragon Disclaimer This electronic medical record was generated, in whole or in part, using a voice recognition dictation system. Departure Departure Impression: Primary Impression: Palpitations Additional Impression: Tachyarrhythmia Disposition: ADMITTED INPATIENT Condition: STABLE Referrals: MONI PARDO (PCP) Problem Qualifiers MAURICIO PARDO DO Dec 11, 2019 03:30
[2019-12-11 04:06] LABS: CALCIUM 8.7 mg/dL (8.5-10.1); CREATININE 0.7 mg/dL (0.6-1.0); GFR 79.3; POTASSIUM 3.8 mmol/L (3.5-5.1)
[2019-12-11 04:12] LABS: ALBUMIN 2.7 g/dL (3.4-5.0); ALBUMIN/GLOBULIN RATIO 0.7 (1.0-1.7); MAGNESIUM 1.7 mg/dL (1.8-2.4); TOTAL BILIRUBIN 0.3 mg/dL (0.2-1.0); TOTAL PROTEIN 6.4 g/dL (6.4-8.2)
[2019-12-11] MEDS ORDERED: MAGNESIUM SULFATE 2GM 50 ML IV ONE (04:45)
[2019-12-11] MEDS ORDERED: ONDANSETRON PF 4 MG/2 ML VIAL. IV PRN ×2 (06:00→17:00)
--- NOTE | 2019-12-11 06:15 | EKG ---
[facility] [address] [place] [address] Test Date: 2019-12-11 Test Time: 02:08:26 Pat Name: CORKY HENSON Department: Room: Gender: F Cabinetmaker Apprentice: : [id number] Requested By: MAURICIO PARDO Order Number: [id number] Reading MD: Measurements Intervals [place] Rate: 99 P: 90 VA: 100 QRS: 41 QRSD: 82 T: 36 QT: 404 QTc: 518 Interpretive Statements SINUS RHYTHM ATRIAL PREMATURE COMPLEX(ES), BIGEMINY LEFT ATRIAL ABNORMALITY INCOMPLETE RIGHT BUNDLE BRANCH BLOCK PROLONGED QT ABNORMAL ECG RI6.01 No previous ECG available for comparison
[2019-12-11] MEDS ORDERED: MULT-245 PO (08:05)
[2019-12-11] MEDS ORDERED: [UNRECOGNIZED DRUG - CODE] PO (08:05)
[2019-12-11] MEDS ORDERED: CALC1TAB PO (08:05)
--- NOTE | 2019-12-11 08:35 | PDOC2 ---
CHANTALE GUILLORY CHIEF RELAY TESTER 12/11/19 0835: CARDIAC CONSULT DATE OF CONSULT Date of Consult DATE: 12/11/19 TIME: 08:29 REASON FOR CONSULT Reason for Consult: Palpitations REFERRING PHYSICIAN Referring Physician: Chris SOURCE Source: Caregiver (son), Chart review, Patient HISTORY OF PRESENT ILLNESS HISTORY OF PRESENT ILLNESS This is a pleasant 84 yo female admitted for complains of feeling tired and occasional palpitations. No chest pain per se but feels like her heart is skipping. She has been having this on and off in the last 2 weeks and actually was here recently and noted with frequent PVCs. Reports no SOA, dizziness or passing out. Reports no hx of CAD, recent fever or chills and no hx of CVA. She does have partial thyroidectomy and unsure if she is taking replacement She also has been having dry coughing spells and started taking robitussin but unsure if this has decongestants. Also she drinks about 4-5 cups of coffee a day. She has been feeling tired lately and also she has not been drinking and eating well, son noted she eats sometimes once a day. She takes her BP meds regularly. Denies any heartburn. No recent falls or any injury. Upon admission she was noted again with frequent PVCs. PAST MEDICAL HISTORY Cardiovascular: HTN, Other (PVCs) Pulmonary: No pertinent hx CENTRAL NERVOUS SYSTEM: Other (No pertinent history) GI: No pertinent hx Heme/Onc: No pertinent hx Hepatobiliary: No pertinent hx Psych: No pertinent hx Musculoskeletal: Osteoarthritis Infectious disease: No pertinent hx ENT: Other (glaucoma) Renal/: UTI Endocrine: Hypothyroidism, Osteoporosis Dermatology: Other (skin CA with removal) PAST SURGICAL HISTORY Past Surgical History: Cataract Removal, Other (skin CA removal; thyroidectomy) SOCIAL HISTORY Smoke: No ALCOHOL: none Drugs: None Lives: with Family CURRENT MEDICATIONS CURRENT MEDICATIONS Current Medications Medications (Trade) Dose Ordered Sig/Kenzie Route PRN Reason Start Time Stop Time Status Last Admin Dose Admin Magnesium Sulfate 50 ml @ 25 mls/hr 1X ONCE IV 12/11/19 04:45 12/11/19 06:44 DC 12/11/19 07:00 ALLERGIES ALLERGIES: Coded Allergies: No Known Drug Allergies (Unverified , 12/06/19) ROS Review of System 14 point ROS evaluated with pertinent positives noted per HPI PHYSICAL EXAM General: Alert, Oriented X3, Cooperative, No acute distress HEENT: Atraumatic, Mucous membr. moist/pink Lungs: Clear to auscultation, Normal air movement Heart: Regular rate (SR), Normal S1, Normal S2, Other (2/6 systolic murmur to LLs border) Abdomen: Soft, No tenderness Extremities: No cyanosis, No edema Skin: No breakdown, No significant lesion Neuro: Normal speech, Sensation intact Psych/Mental Status: Mental status NL, Mood NL MUSCULOSKELETAL: Osteoarthritic changes both hands VITALS/I&O VITALS/I&O: Vital Signs Date Time Temp Pulse Resp B/P (MAP) Pulse Ox O2 Delivery O2 Flow Rate FiO2 12/11/19 07:42 99.0 101 20 93 99.0 12/11/19 01:55 147/77 (100) Nasal Cannula 2.0 LABS Lab: Laboratory Tests Test 12/11/19 02:28 12/11/19 03:45 White Blood Count 7.5 x10^3/uL (4.0-11.0) Red Blood Count 4.13 x10^6/uL (3.50-5.40) Hemoglobin 13.5 g/dL (12.0-15.5) Hematocrit 40.5 % (36.0-47.0) Mean Corpuscular Volume 98 fL (79-100) Mean Corpuscular Hemoglobin 33 pg (25-35) Mean Corpuscular Hemoglobin Concent 33 g/dL (31-37) Red Cell Distribution Width 13.5 % (11.5-14.5) Platelet Count 236 x10^3/uL (140-400) Neutrophils (%) (Auto) 71 % (31-73) Lymphocytes (%) (Auto) 14 % (24-48) L Monocytes (%) (Auto) 12 % (0-9) H Eosinophils (%) (Auto) 3 % (0-3) Basophils (%) (Auto) 0 % (0-3) Neutrophils # (Auto) 5.4 x10^3/uL (1.8-7.7) Lymphocytes # (Auto) 1.0 x10^3/uL (1.0-4.8) Monocytes # (Auto) 0.9 x10^3/uL (0.0-1.1) Eosinophils # (Auto) 0.2 x10^3/uL (0.0-0.7) Basophils # (Auto) 0.0 x10^3/uL (0.0-0.2) Sodium Level 134 mmol/L (136-145) L Potassium Level 3.8 mmol/L (3.5-5.1) Chloride Level 99 mmol/L (98-107) Carbon Dioxide Level 31 mmol/L (21-32) Anion Gap 4 (6-14) L Blood Urea Nitrogen 15 mg/dL (7-20) Creatinine 0.7 mg/dL (0.6-1.0) Estimated GFR (Cockcroft-Gault) 79.3 BUN/Creatinine Ratio 21 (6-20) H Glucose Level 115 mg/dL (70-99) H Calcium Level 8.7 mg/dL (8.5-10.1) Magnesium Level 1.7 mg/dL (1.8-2.4) L Total Bilirubin 0.3 mg/dL (0.2-1.0) Aspartate Amino Transferase (AST) 24 U/L (15-37) Alanine Aminotransferase (ALT) 28 U/L (14-59) Alkaline Phosphatase 67 U/L (46-116) Troponin I Quantitative < 0.017 ng/mL (0.000-0.055) MB-Jsr-F-Type Natriuretic Peptide 742 pg/mL (0-449) H Total Protein 6.4 g/dL (6.4-8.2) Albumin 2.7 g/dL (3.4-5.0) L Albumin/Globulin Ratio 0.7 (1.0-1.7) L Thyroid Stimulating Hormone (TSH) 1.068 uIU/mL (0.358-3.74) Laboratory Tests 12/11/19 02:28 Laboratory Tests 12/11/19 03:45 ASSESSMENT/PLAN ASSESSMENT/PLAN 1. Palpitations: due to PVCs 2. Fatigue: potentially related to poor calorie intake 3. Bigeminal unifocal PVCs 4. Mild hypopmagnesemia 5. Allergic rhinitis/postnasal drip with dry cough. Defer to PCP 6. HTN: controlled 7. Partial thyroidectomy: unclear if taking replacement but TSH on goal Recommendations 1. Mg replacement 2. TTE and check lipids. Check UA. 3. MCOT to be arrange to note PVC burden 4. Dietitian consult, discussed increase caloric intake, hydration adequacy and minimizing caffeine intake and avoidance of decongestants. 5. Change atenolol and intensify BB dosing via metoprolol. 6. Stop HCTZ. May continue home norvasc pending BP trend 7. Potentially outpt ischemic workup is a consideration pending her tests and any evolution of her symptomatology KENZIE LEONE MD 12/12/19 0840: CARDIAC CONSULT ASSESSMENT/PLAN ASSESSMENT/PLAN Late entry for 12/11/2019. Pt. seen and examined. Agree with above REGISTERED LAND SURVEYOR note. No significant cardiac pain. Normal exam. TTE wnl. Supportive care. Ok to DC. Thanks CHANTALE GUILLORY APRN Dec 11, 2019 08:35 KENZIE LEONE MD Dec 12, 2019 08:40
[2019-12-11] MEDS ORDERED: METOPROLOL TART IMMED RELEASE 50 MG TABLET. PO ONE (09:15)
--- NOTE | 2019-12-11 09:16 | PDOC1 ---
History and Physical Date of Admission Date of Admission DATE: 12/11/19 TIME: 09:16 Identification/Chief Complaint Chief Complaint SEEN IN ER WITH PALPITATIONS, WEAKNESS 84 year old female history of palpitations, A. fib and hypomagnesemia who presents with generalized weakness and palpitations starting 10 hours prior to ED arrival. ///was admitted to this facility last week for the same was noted to be on trigeminy. Patient gina on ED arrival today. is on antiarrhythmic medication is compliant with treatment. Denies dizziness lightheadedness, chest pain, shortness of breath. Denies increased leg pain or swelling. No other acute symptoms or complaints. Usually drinks 3-4 cups of coffee a day Past Medical History Past Medical History Past Medical History Past Medical History Past Medical History: Hypertension Past Surgical History: No Surgical History Smoking Status: Former Smoker Alcohol Use: None fhx htn Cardiovascular: HTN Pulmonary: No pertinent hx GI: No pertinent hx Heme/Onc: No pertinent hx Hepatobiliary: No pertinent hx Psych: No pertinent hx Rheumatologic: No pertinent hx Infectious disease: No pertinent hx Renal/: No pertinent hx Endocrine: No pertinent hx Past Surgical History Past Surgical History: No pertinent history Family History Family History: Hypertension Social History Smoke: No ALCOHOL: none Drugs: None Current Medications Current Medications Current Medications Magnesium Sulfate 50 ml @ 25 mls/hr 1X ONCE IV Last administered on 12/11/19at 07:00; Start 12/11/19 at 04:45; Stop 12/11/19 at 06:44; Status DC Ondansetron HCl (Zofran) 4 mg PRN Q8HRS PRN IV NAUSEA/VOMITING; Start 12/11/19 at 06:00; Stop 12/12/19 at 05:59 Metoprolol Tartrate (Lopressor) 50 mg 1X ONCE PO ; Start 12/11/19 at 09:15; Stop 12/11/19 at 09:16 Active Scripts Active Magnesium (Magnesium Oxide) 400 Mg Capsule 1 Cap PO DAILY 30 Days Reported Multi Vitamin Daily (Multivitamin) 1 Each Tablet 1 Tab PO DAILY 30 Days [place]-3 + Vitamin D3 Tab Chew (Om-3/Dha/Epa/Fish Oil/Vit D3) 1 Each Tab.chew 1 Each PO BID Caltrate 600 + D Tablet (Calcium Carbonate/Vitamin D3) 1 Each Tablet 1 Each PO BID Nataliia-C 1,000 Mg Tablet (Ascorbate Calcium/Bioflavonoid) 1 Each Tablet 1 Each PO DAILY Aspir-Low (Aspirin) 81 Mg Tablet.dr 1 Tab PO BID Zolpidem Tartrate 5 Mg Tablet 5 Mg PO PRN QHS PRN Raloxifene HCl 60 Mg Tablet 60 Mg PO DAILY Amlodipine Besylate 5 Mg Tablet 5 Mg PO DAILY Hydrochlorothiazide Tablet (Hydrochlorothiazide) 12.5 Mg Tablet 12.5 Mg PO DAILY Atenolol 25 Mg Tablet 1 Tab PO DAILY Allergies Allergies: Coded Allergies: No Known Drug Allergies (Unverified , 12/06/19) ROS Review of System Review of Systems Review of Systems ROS as per HPI. 14 PT systems were reviewed and found to be within normal limits, except as documented General: YES: Fatigue PSYCHOLOGICAL ROS: No: Anxiety, Behavioral Disorder, Concentration difficultie, Decreased libido, Depression, Disorientation, Hallucinations, Hostility, Irritablity, Memory difficulties, Mood Swings, Obsessive thoughts, Physical abuse, Sexual abuse, Sleep disturbances, Suicidal ideation, Other HEENT: No: Heacaches, Visual Changes, Hearing change, Nasal congestion, Nasal discharge, Oral lesions, Sinus pain, Sore Throat, Epistaxis, Sneezing, Snoring, Tinnitus, Vertigo, Vocal changes, Other ALLERGY AND IMMUNOLOGY: No: Hives, Insect Bite Sensitivity, Itchy/Watery Eyes, Nasal Congestion, Post Nasal Drip, Seasonal Allergies, Other Hematological and Lymphatic: No: Bleeding Problems, Blood Clots, Blood Transfusions, Brusing, Night Sweats, Pallor, Swollen Lymph Nodes, Other Respiratory: YES: Shortness of breath Cardiovascular: yes Palpitations Gastrointestinal: No Nausea, No Vomiting, No Abdominal Pain, No Diarrhea, No Constipation, No Melena, No Hematochezia, No Other Musculoskeletal: Yes Joint Stiffness Skin: Yes Dry Skin; No Eczema, No Hair Changes, No Lumps, No Mole Changes, No Mottling, No Nail Changes, No Pruritus, No Rash, No Skin Lesion Changes, No Other, No Acne Physical Exam Physical Exam Physical Exam Physical Exam Constitutional: Well developed, well nourished, no acute distress, non-toxic appearance. [] HENT: Normocephalic, atraumatic, bilateral external ears normal, oropharynx moist, no oral exudates, nose normal. [] Eyes: PERRLA, EOMI, conjunctiva normal, no discharge. [] Neck: Normal range of motion, no tenderness, supple, no stridor. [] Cardiovascular: Tachycardia, frequent ectopy ON MONITOR [] Lungs & Thorax: Bilateral breath sounds clear to auscultation [] Abdomen: Bowel sounds normal. [] Skin: Warm, dry, no erythema, no rash. [] Back: No tenderness. [] Extremities: No tenderness. [] Neurologic: Alert and oriented X 3, normal motor function, normal sensory function, no focal deficits noted. [] Psychologic: Affect normal, judgment normal, mood normal. [] General: Alert, Oriented X3, Cooperative, No acute distress HEENT: Atraumatic, EOMI, Mucous membr. moist/pink Breasts: Not examined Abdomen: Normal bowel sounds, Soft Neuro: Normal speech, Cranial nerves 3-12 NL Psych/Mental Status: Mental status NL, Mood NL Vitals Vitals Vital Signs Date Time Temp Pulse Resp B/P (MAP) Pulse Ox O2 Delivery O2 Flow Rate FiO2 12/11/19 07:42 99.0 101 20 93 99.0 12/11/19 01:55 147/77 (100) Nasal Cannula 2.0 Labs Labs Laboratory Tests Test 12/11/19 02:28 12/11/19 03:45 White Blood Count 7.5 x10^3/uL (4.0-11.0) Red Blood Count 4.13 x10^6/uL (3.50-5.40) Hemoglobin 13.5 g/dL (12.0-15.5) Hematocrit 40.5 % (36.0-47.0) Mean Corpuscular Volume 98 fL (79-100) Mean Corpuscular Hemoglobin 33 pg (25-35) Mean Corpuscular Hemoglobin Concent 33 g/dL (31-37) Red Cell Distribution Width 13.5 % (11.5-14.5) Platelet Count 236 x10^3/uL (140-400) Neutrophils (%) (Auto) 71 % (31-73) Lymphocytes (%) (Auto) 14 % (24-48) Monocytes (%) (Auto) 12 % (0-9) Eosinophils (%) (Auto) 3 % (0-3) Basophils (%) (Auto) 0 % (0-3) Neutrophils # (Auto) 5.4 x10^3/uL (1.8-7.7) Lymphocytes # (Auto) 1.0 x10^3/uL (1.0-4.8) Monocytes # (Auto) 0.9 x10^3/uL (0.0-1.1) Eosinophils # (Auto) 0.2 x10^3/uL (0.0-0.7) Basophils # (Auto) 0.0 x10^3/uL (0.0-0.2) Sodium Level 134 mmol/L (136-145) Potassium Level 3.8 mmol/L (3.5-5.1) Chloride Level 99 mmol/L (98-107) Carbon Dioxide Level 31 mmol/L (21-32) Anion Gap 4 (6-14) Blood Urea Nitrogen 15 mg/dL (7-20) Creatinine 0.7 mg/dL (0.6-1.0) Estimated GFR (Cockcroft-Gault) 79.3 BUN/Creatinine Ratio 21 (6-20) Glucose Level 115 mg/dL (70-99) Calcium Level 8.7 mg/dL (8.5-10.1) Magnesium Level 1.7 mg/dL (1.8-2.4) Total Bilirubin 0.3 mg/dL (0.2-1.0) Aspartate Amino Transf (AST/SGOT) 24 U/L (15-37) Alanine Aminotransferase (ALT/SGPT) 28 U/L (14-59) Alkaline Phosphatase 67 U/L (46-116) Troponin I Quantitative < 0.017 ng/mL (0.000-0.055) CJ-Uwn-S-Type Natriuretic Peptide 742 pg/mL (0-449) Total Protein 6.4 g/dL (6.4-8.2) Albumin 2.7 g/dL (3.4-5.0) Albumin/Globulin Ratio 0.7 (1.0-1.7) Thyroid Stimulating Hormone (TSH) 1.068 uIU/mL (0.358-3.74) Laboratory Tests Test 12/11/19 02:28 12/11/19 03:45 White Blood Count 7.5 x10^3/uL (4.0-11.0) Red Blood Count 4.13 x10^6/uL (3.50-5.40) Hemoglobin 13.5 g/dL (12.0-15.5) Hematocrit 40.5 % (36.0-47.0) Mean Corpuscular Volume 98 fL (79-100) Mean Corpuscular Hemoglobin 33 pg (25-35) Mean Corpuscular Hemoglobin Concent 33 g/dL (31-37) Red Cell Distribution Width 13.5 % (11.5-14.5) Platelet Count 236 x10^3/uL (140-400) Neutrophils (%) (Auto) 71 % (31-73) Lymphocytes (%) (Auto) 14 % (24-48) Monocytes (%) (Auto) 12 % (0-9) Eosinophils (%) (Auto) 3 % (0-3) Basophils (%) (Auto) 0 % (0-3) Neutrophils # (Auto) 5.4 x10^3/uL (1.8-7.7) Lymphocytes # (Auto) 1.0 x10^3/uL (1.0-4.8) Monocytes # (Auto) 0.9 x10^3/uL (0.0-1.1) Eosinophils # (Auto) 0.2 x10^3/uL (0.0-0.7) Basophils # (Auto) 0.0 x10^3/uL (0.0-0.2) Sodium Level 134 mmol/L (136-145) Potassium Level 3.8 mmol/L (3.5-5.1) Chloride Level 99 mmol/L (98-107) Carbon Dioxide Level 31 mmol/L (21-32) Anion Gap 4 (6-14) Blood Urea Nitrogen 15 mg/dL (7-20) Creatinine 0.7 mg/dL (0.6-1.0) Estimated GFR (Cockcroft-Gault) 79.3 BUN/Creatinine Ratio 21 (6-20) Glucose Level 115 mg/dL (70-99) Calcium Level 8.7 mg/dL (8.5-10.1) Magnesium Level 1.7 mg/dL (1.8-2.4) Total Bilirubin 0.3 mg/dL (0.2-1.0) Aspartate Amino Transf (AST/SGOT) 24 U/L (15-37) Alanine Aminotransferase (ALT/SGPT) 28 U/L (14-59) Alkaline Phosphatase 67 U/L (46-116) Troponin I Quantitative < 0.017 ng/mL (0.000-0.055) RZ-Ssk-N-Type Natriuretic Peptide 742 pg/mL (0-449) Total Protein 6.4 g/dL (6.4-8.2) Albumin 2.7 g/dL (3.4-5.0) Albumin/Globulin Ratio 0.7 (1.0-1.7) Thyroid Stimulating Hormone (TSH) 1.068 uIU/mL (0.358-3.74) Images Images Pulmonary Valve PV Peak Velocity 65.4cm/s Tricuspid Valve TR P. Velocity 313cm/s RAP ESTIMATE 3mmHg TR Peak Gr. 39mmHg RVSP 42mmHg Pulmonary Vein S1 Velocity 59.7cm/s D2 Velocity 41.4cm/s PVa duration 129msec LEFT VENTRICLE The left ventricle is normal size. There is normal left ventricular wall th ickness. The left ventricular systolic function is normal and the ejection fraction is within normal range. The Ejection Fraction is 60-65%. There is normal LV segmental wall motion. Transmitral Doppler flow pattern is normal for age. There is no ventricular septal defect visualized. RIGHT VENTRICLE The right ventricle is normal size. The right ventricular systolic function is n ormal. ATRIA The left atrium size is normal. The right atrium size is normal. The interatrial septum is intact with no evidence for an atrial septal defect or patent foramen ovale as noted on 2-D or Doppler imaging. AORTIC VALVE The aortic valve is mildly thickened but opens well. Doppler and Color Flow revealed no significant aortic regurgitation. There is no significant aortic valvular stenosis. MITRAL VALVE The mitral valve is normal in structure and function. There is no mitral valve stenosis. Doppler and Color-flow revealed trace mitral regurgitation. TRICUSPID VALVE The tricuspid valve is normal in structure and function. Doppler and Color Flow revealed trace tricuspid regurgitation. PAP is estimated at 42 mmHg. There is no tricuspid valve stenosis. PULMONIC VALVE Doppler and Color Flow revealed trace pulmonic valvular regurgitation. There is no pulmonic valvular stenosis. GREAT VESSELS The aortic root is normal in size. The ascending aorta is normal in size. The IVC is normal in size and collapses >50% with inspiration. PERICARDIAL EFFUSION There is no pleural effusion. There is no evidence of significant pericardial effusion. Critical Notification Critical Value: No <Conclusion> The left ventricular systolic function is normal and the ejection fraction is within normal range. The Ejection Fraction is 60-65%. There is normal LV segmental wall motion. Signed by : Kenzie Leone, Electronically Approved : 12/11/2019 13:51:12 DICTATED and SIGNED BY: KENZIE LEONE MD DATE: 12/11/19 1341 VTE Prophylaxis Ordered VTE Prophylaxis Devices: Yes VTE Pharmacological Prophylaxi: Yes Assessment/Plan Assessment/Plan impression Palpitations generalized weakness Essential hypertension Hypomagnesemia replace Chronic kidney disease stage II PLAN ECHO ADMIT TELE CARDIOLOGY CONSULT REDUCE CAFFEINE INTAKE MCOT to be arrange to note PVC burden change to atenolol, d/c metoprolol dvt prophylaxis ESUA REYNOLDS MD Dec 11, 2019 09:16
[2019-12-11 11:37] LABS: CHOLESTEROL/HDL RATIO 1.7
--- NOTE | 2019-12-11 13:51 | CARD ---
MR#: [id number] Date of Study: 12/11/2019 Ordering Physician: CHANTALE GUILLORY, Referring Physician: CHANTALE GUILLORY, Tech: Cb Cee SHANNON APPROVED REPORT EXAM: Two-dimensional and M-mode echocardiogram with Doppler and color Doppler. Other Information Quality : GoodHR: 77bpm Rhythm : PVC's INDICATION Palpitations RISK FACTORS Hypertension 2D DIMENSIONS RVDd3.2 (2.9-3.5cm)Left Atrium(2D)3.1 (1.6-4.0cm) IVSd0.9 (0.7-1.1cm)Aortic Root(2D)2.3 (2.0-3.7cm) LVDd3.6 (3.9-5.9cm)LVOT Diameter1.8 (1.8-2.4cm) PWd0.8 (0.7-1.1cm)LVDs2.5 (2.5-4.0cm) FS (%) 30.7 %SV31.3 ml LVEF(%)59.3 (>50%) Aortic Valve AoV Peak Chinedu.107.5cm/Kusum Peak GR.4.6mmHg LVOT Peak Chinedu.88.3cm/sAVA (VMAX)2.02cm2 Mitral Valve MV E Bjmtsyag88.0cm/sMV DECEL [id number] MV A Wbfcakne75.3cm/sE/A Ratio1.2 MV A [id number] Pulmonary Valve PV Peak Yafwfjee75.4cm/s Tricuspid Valve TR P. Dywdkuhq838jj/sRAP [id number] TR Peak Gr.[id number] Pulmonary Vein S1 Axmnhqii22.7cm/sD2 Xbknhrim44.4cm/s PVa [id number] LEFT VENTRICLE The left ventricle is normal size. There is normal left ventricular wall thickness. The left ventricu lar systolic function is normal and the ejection fraction is within normal range. The Ejection Fracti on is 60-65%. There is normal LV segmental wall motion. Transmitral Doppler flow pattern is normal fo r age. There is no ventricular septal defect visualized. RIGHT VENTRICLE The right ventricle is normal size. The right ventricular systolic function is normal. ATRIA The left atrium size is normal. The right atrium size is normal. The interatrial septum is intact wit h no evidence for an atrial septal defect or patent foramen ovale as noted on 2-D or Doppler imaging. AORTIC VALVE The aortic valve is mildly thickened but opens well. Doppler and Color Flow revealed no significant a ortic regurgitation. There is no significant aortic valvular stenosis. MITRAL VALVE The mitral valve is normal in structure and function. There is no mitral valve stenosis. Doppler and Color-flow revealed trace mitral regurgitation. TRICUSPID VALVE The tricuspid valve is normal in structure and function. Doppler and Color Flow revealed trace tricus pid regurgitation. PAP is estimated at 42 mmHg. There is no tricuspid valve stenosis. PULMONIC VALVE Doppler and Color Flow revealed trace pulmonic valvular regurgitation. There is no pulmonic valvular stenosis. GREAT VESSELS The aortic root is normal in size. The ascending aorta is normal in size. The IVC is normal in size a nd collapses >50% with inspiration. PERICARDIAL EFFUSION There is no pleural effusion. There is no evidence of significant pericardial effusion. Critical Notification Critical Value: No <Conclusion> The left ventricular systolic function is normal and the ejection fraction is within normal range. Th e Ejection Fraction is 60-65%. There is normal LV segmental wall motion. Signed by : Josh Muro, Electronically Approved : 12/11/2019 13:51:12
[2019-12-11 15:02] LABS: BILIRUBIN,URINE NEGATIVE (NEG); CLARITY,URINE TURBID; COLOR,URINE YELLOW; NITRITE,URINE NEGATIVE (NEG); PROTEIN,URINE NEGATIVE (NEG-TRACE); UROBILINOGEN,URINE 0.2 mg/dL (0.2 mg/dL)
[2019-12-11 15:20] LABS: BACTERIA,URINE 0 /HPF (0-FEW); RBC,URINE 0 /HPF (0-2); WBC,URINE 0 /HPF (0-4)
[2019-12-11 15:21] LABS: AMORPHOUS SEDIMENT,UR PRESENT /HPF
[2019-12-11] MEDS ORDERED: guaiFENesin ORAL 200 MG/10 ML LIQUID. PO PRN (17:00)
[2019-12-11] MEDS ORDERED: LORazepam 0.5 MG TABLET PO PRN (17:00)
[2019-12-11] MEDS ORDERED: ALBUTEROL SULFATE 2.5 MG/3 ML NEBU. NEB PRN (17:00)
[2019-12-11] MEDS ORDERED: ACETAMINOPHEN 325 MG TABLET. PO PRN (17:00)
[2019-12-11] MEDS ORDERED: DOCUSATE SODIUM 100 MG CAPSULE. PO PRN (17:00)
[2019-12-11] MEDS ORDERED: 0.9 % SODIUM CHLORIDE 10 ML DISP.SYRIN. IV PRN (17:00)
[2019-12-11] MEDS ORDERED: MAG HYDROX/ALUMINUM HYD/SIMETH 30 ML ORAL.SUSP PO PRN (17:00)
[2019-12-11] MEDS ORDERED: ZOLPIDEM 5 MG TABLET. PO PRN (17:00)
[2019-12-11] MEDS: ENOXAPARIN 40 MG/0.4 ML SYRINGE. SQ SCH (18:33)
[2019-12-11] MEDS: METOPROLOL TART IMMED RELEASE 50 MG TABLET. PO SCH (22:19)
[2019-12-11] MEDS: OMEGA-3 FATTY ACIDS/FISH OIL 1,000 MG CAPSULE. PO SCH (22:19)
[2019-12-11] MEDS: ASPIRIN ENTERIC COATED 81 MG TABLET.DR. PO SCH (22:20)
[2019-12-11 23:35] VITALS: BP 135/75
[2019-12-12 03:32] VITALS: BP 142/86
[2019-12-12 07:59] VITALS: BP 152/60
[2019-12-12] MEDS: amLODIPine BESYLATE 5 MG TABLET PO SCH (09:00)
[2019-12-12] MEDS: METOPROLOL TART IMMED RELEASE 50 MG TABLET. PO SCH ×2 (09:00→21:50)
[2019-12-12] MEDS: RALOXIFENE 60 MG TABLET. PO SCH (09:49)
[2019-12-12] MEDS: MAGNESIUM OXIDE 400 MG TABLET PO SCH ×2 (09:49→21:50)
[2019-12-12] MEDS: ASPIRIN ENTERIC COATED 81 MG TABLET.DR. PO SCH ×2 (09:50→21:50)
[2019-12-12] MEDS: ATENOLOL 25 MG TABLET. PO SCH (09:50)
[2019-12-12] MEDS: OMEGA-3 FATTY ACIDS/FISH OIL 1,000 MG CAPSULE. PO SCH ×2 (09:50→21:49)
[2019-12-12] MEDS: MULTIVITAMIN with MINERAL TABLET. PO SCH (09:51)
[2019-12-12] MEDS: ASCORBIC ACID 500 MG TABLET PO SCH (09:51)
--- NOTE | 2019-12-12 10:09 | NUR ---
SS following for discharge planning. SS reviewed pt chart. Pt is from home with spouse and is currently on room air. SS will continue to follow for discharge planning.
--- NOTE | 2019-12-12 11:27 | PDOC ---
PROGRESS NOTES History of Present Illness History of Present Illness VTE Prophylaxis Ordered VTE Prophylaxis Devices: Yes VTE Pharmacological Prophylaxi: Yes Assessment/Plan Assessment/Plan impression Palpitations generalized weakness Essential hypertension Hypomagnesemia replace Chronic kidney disease stage II bradycardia, monitor PLAN ECHO ADMIT TELE CARDIOLOGY following REDUCE CAFFEINE INTAKE [facility]OT to be arrange to note PVC burden change to atenolol, d/c metoprolol dvt prophylaxis mag-ox 400mg po bid Vitals Vitals Vital Signs Date Time Temp Pulse Resp B/P (MAP) Pulse Ox O2 Delivery O2 Flow Rate FiO2 12/12/19 09:50 43 152/60 12/12/19 07:59 98.3 16 94 Room Air 98.3 12/11/19 18:41 Physical Exam General: Alert, Oriented X3, Cooperative, No acute distress Heart: Regular rate (SR), Normal S1, Normal S2, Other (2/6 systolic murmur to LLs border) Abdomen: Normal bowel sounds, Soft Extremities: No cyanosis, No edema Skin: No breakdown, No significant lesion Labs LABS Home Environment Type * House Physical Barriers in Home Environment * Single Step * Greater than 4 steps ADL Assistance Required Prior to Admission * Independent Mobility Assistance Required Prior to Admission * Independent Patient's IADLs Prior to Admission * Driving * Laundry * Housekeeping * Shopping * Meal preparation * House/lawn maintenance IADL Assistance Provided By * Spouse Level of Consciousness * Alert Oriented to: * Person * Place * Time * Situation Behavior * Cooperative Activity Tolerance * Good No Further Skilled P.T. Intervention Required * Eval only-No PT Needs Discharge Recommendations * Home independent Discharge Recommendation Comments * no PT indicated, no mobility concerns Laboratory Tests Test 12/11/19 14:45 Urine Collection Type Unknown Urine Color Yellow Urine Clarity Turbid Urine pH 8.0 Urine Specific [place] 1.020 Urine Protein Negative mg/dL (NEG-TRACE) Urine Glucose (UA) Negative mg/dL (NEG) Urine Ketones (Stick) Negative mg/dL (NEG) Urine Blood Negative (NEG) Urine Nitrite Negative (NEG) Urine Bilirubin Negative (NEG) Urine Urobilinogen Dipstick 0.2 mg/dL (0.2 mg/dL) Urine Leukocyte Esterase Small (NEG) Urine RBC 0 /HPF (0-2) Urine WBC 0 /HPF (0-4) Urine Amorphous Sediment Present /HPF Urine Bacteria 0 /HPF (0-FEW) Comment Review of Relevant I have reviewed the following items jhonny (where applicable) has been applied. Labs Laboratory Tests Test 12/11/19 02:28 12/11/19 03:45 12/11/19 14:45 White Blood Count 7.5 x10^3/uL (4.0-11.0) Red Blood Count 4.13 x10^6/uL (3.50-5.40) Hemoglobin 13.5 g/dL (12.0-15.5) Hematocrit 40.5 % (36.0-47.0) Mean Corpuscular Volume 98 fL (79-100) Mean Corpuscular Hemoglobin 33 pg (25-35) Mean Corpuscular Hemoglobin Concent 33 g/dL (31-37) Red Cell Distribution Width 13.5 % (11.5-14.5) Platelet Count 236 x10^3/uL (140-400) Neutrophils (%) (Auto) 71 % (31-73) Lymphocytes (%) (Auto) 14 % (24-48) Monocytes (%) (Auto) 12 % (0-9) Eosinophils (%) (Auto) 3 % (0-3) Basophils (%) (Auto) 0 % (0-3) Neutrophils # (Auto) 5.4 x10^3/uL (1.8-7.7) Lymphocytes # (Auto) 1.0 x10^3/uL (1.0-4.8) Monocytes # (Auto) 0.9 x10^3/uL (0.0-1.1) Eosinophils # (Auto) 0.2 x10^3/uL (0.0-0.7) Basophils # (Auto) 0.0 x10^3/uL (0.0-0.2) Sodium Level 134 mmol/L (136-145) Potassium Level 3.8 mmol/L (3.5-5.1) Chloride Level 99 mmol/L (98-107) Carbon Dioxide Level 31 mmol/L (21-32) Anion Gap 4 (6-14) Blood Urea Nitrogen 15 mg/dL (7-20) Creatinine 0.7 mg/dL (0.6-1.0) Estimated GFR (Cockcroft-Gault) 79.3 BUN/Creatinine Ratio 21 (6-20) Glucose Level 115 mg/dL (70-99) Calcium Level 8.7 mg/dL (8.5-10.1) Magnesium Level 1.7 mg/dL (1.8-2.4) Total Bilirubin 0.3 mg/dL (0.2-1.0) Aspartate Amino Transf (AST/SGOT) 24 U/L (15-37) Alanine Aminotransferase (ALT/SGPT) 28 U/L (14-59) Alkaline Phosphatase 67 U/L (46-116) Troponin I Quantitative < 0.017 ng/mL (0.000-0.055) EE-Ptu-T-Type Natriuretic Peptide 742 pg/mL (0-449) Total Protein 6.4 g/dL (6.4-8.2) Albumin 2.7 g/dL (3.4-5.0) Albumin/Globulin Ratio 0.7 (1.0-1.7) Triglycerides Level 42 mg/dL (0-150) Cholesterol Level 110 mg/dL (0-200) LDL Cholesterol, Calculated 39 mg/dL (0-100) VLDL Cholesterol, Calculated 8 mg/dL (0-40) Non-HDL Cholesterol Calculated 47 mg/dL (0-129) HDL Cholesterol 63 mg/dL (40-60) Cholesterol/HDL Ratio 1.7 Thyroid Stimulating Hormone (TSH) 1.068 uIU/mL (0.358-3.74) Urine Collection Type Unknown Urine Color Yellow Urine Clarity Turbid Urine pH 8.0 Urine Specific [place] 1.020 Urine Protein Negative mg/dL (NEG-TRACE) Urine Glucose (UA) Negative mg/dL (NEG) Urine Ketones (Stick) Negative mg/dL (NEG) Urine Blood Negative (NEG) Urine Nitrite Negative (NEG) Urine Bilirubin Negative (NEG) Urine Urobilinogen Dipstick 0.2 mg/dL (0.2 mg/dL) Urine Leukocyte Esterase Small (NEG) Urine RBC 0 /HPF (0-2) Urine WBC 0 /HPF (0-4) Urine Amorphous Sediment Present /HPF Urine Bacteria 0 /HPF (0-FEW) Laboratory Tests Test 12/11/19 14:45 Urine Collection Type Unknown Urine Color Yellow Urine Clarity Turbid Urine pH 8.0 Urine Specific [place] 1.020 Urine Protein Negative mg/dL (NEG-TRACE) Urine Glucose (UA) Negative mg/dL (NEG) Urine Ketones (Stick) Negative mg/dL (NEG) Urine Blood Negative (NEG) Urine Nitrite Negative (NEG) Urine Bilirubin Negative (NEG) Urine Urobilinogen Dipstick 0.2 mg/dL (0.2 mg/dL) Urine Leukocyte Esterase Small (NEG) Urine RBC 0 /HPF (0-2) Urine WBC 0 /HPF (0-4) Urine Amorphous Sediment Present /HPF Urine Bacteria 0 /HPF (0-FEW) Medications Current Medications Magnesium Sulfate 50 ml @ 25 mls/hr 1X ONCE IV Last administered on 12/11/19at 07:00; Start 12/11/19 at 04:45; Stop 12/11/19 at 06:44; Status DC Ondansetron HCl (Zofran) 4 mg PRN Q8HRS PRN IV NAUSEA/VOMITING; Start 12/11/19 at 06:00; Stop 12/12/19 at 05:59; Status DC Metoprolol Tartrate (Lopressor) 50 mg 1X ONCE PO Last administered on 12/11/19at 09:42; Start 12/11/19 at 09:15; Stop 12/11/19 at 09:16; Status DC Metoprolol Tartrate (Lopressor) 50 mg BID PO Last administered on 12/11/19at 22:19; Start 12/11/19 at 21:00 Amlodipine Besylate (Norvasc) 5 mg DAILY PO Last administered on 12/12/19at 09:00; Start 12/12/19 at 09:00 Aspirin (Ecotrin) 81 mg BID PO Last administered on 12/12/19at 09:50; Start 12/11/19 at 21:00 Atenolol (Tenormin) 25 mg DAILY PO Last administered on 12/12/19at 09:50; Start 12/12/19 at 09:00 Raloxifene HCl (Evista) 60 mg DAILY PO Last administered on 12/12/19at 09:49; Start 12/12/19 at 09:00 Zolpidem Tartrate (Ambien) 5 mg PRN QHS PRN PO INSOMNIA; Start 12/11/19 at 17:00 Ascorbic Acid (Vitamin C) 1,000 mg DAILY PO Last administered on 12/12/19at 09:51; Start 12/12/19 at 09:00 Magnesium Oxide (Magnesium Oxide) 400 mg DAILY PO Last administered on 12/12/19at 09:49; Start 12/12/19 at 09:00 Multivitamins (Thera M Plus) 1 tab DAILY PO Last administered on 12/12/19at 09:51; Start 12/12/19 at 09:00 Fish Oil (Fish Oil) 1,000 mg BID PO Last administered on 12/12/19at 09:50; Start 12/11/19 at 21:00 Sodium Chloride (Normal Saline Flush) 3 ml QSHIFT PRN IV AFTER MEDS AND BLOOD DRAWS; Start 12/11/19 at 17:00 Ondansetron HCl (Zofran) 4 mg PRN Q4HRS PRN IV NAUSEA/VOMITING; Start 12/11/19 at 17:00 Acetaminophen (Tylenol) 650 mg PRN Q4HRS PRN PO TEMP OVER 100.4F OR MILD PAIN; Start 12/11/19 at 17:00 Al Hydroxide/Mg Hydroxide (Mylanta Plus Xs) 30 ml PRN DAILY PRN PO HEARTBURN / GAS; Start 12/11/19 at 17:00 Docusate Sodium (Colace) 100 mg PRN BID PRN PO CONSTIPATION; Start 12/11/19 at 17:00 Albuterol Sulfate (Ventolin Neb Soln) 2.5 mg PRN Q4HRS PRN NEB SHORTNESS OF BREATH; Start 12/11/19 at 17:00 Guaifenesin (Robitussin) 200 mg PRN Q4HRS PRN PO COUGH; Start 12/11/19 at 17:00 Lorazepam (Ativan) 0.5 mg PRN Q4HRS PRN PO ANXIETY / AGITATION; Start 12/11/19 at 17:00 Enoxaparin Sodium (Lovenox 40mg Syringe) 40 mg Q24H SQ Last administered on 12/11/19at 18:33; Start 12/11/19 at 17:00 Active Scripts Active Magnesium (Magnesium Oxide) 400 Mg Capsule 1 Cap PO DAILY 30 Days Reported Multi Vitamin Daily (Multivitamin) 1 Each Tablet 1 Tab PO DAILY 30 Days [place]-3 + Vitamin D3 Tab Chew (Om-3/Dha/Epa/Fish Oil/Vit D3) 1 Each Tab.chew 1 Each PO BID Caltrate 600 + D Tablet (Calcium Carbonate/Vitamin D3) 1 Each Tablet 1 Each PO BID Nataliia-C 1,000 Mg Tablet (Ascorbate Calcium/Bioflavonoid) 1 Each Tablet 1 Each PO DAILY Aspir-Low (Aspirin) 81 Mg Tablet.dr 1 Tab PO BID Zolpidem Tartrate 5 Mg Tablet 5 Mg PO PRN QHS PRN Raloxifene HCl 60 Mg Tablet 60 Mg PO DAILY Amlodipine Besylate 5 Mg Tablet 5 Mg PO DAILY Hydrochlorothiazide Tablet (Hydrochlorothiazide) 12.5 Mg Tablet 12.5 Mg PO DAILY Atenolol 25 Mg Tablet 1 Tab PO DAILY Vitals/I & O Vital Sign - Last 24 Hours 12/11/19 12/11/19 12/11/19 12/11/19 11:40 14:48 16:41 18:33 Pulse 80 74 92 92 Resp 24 22 24 20 Pulse Ox 95 96 95 96 12/11/19 12/11/19 12/11/19 12/11/19 18:41 20:30 22:19 23:35 Temp 98.3 98.3 Pulse 88 86 45 Resp 22 16 B/P (MAP) 148/80 135/75 (95) Pulse Ox 96 92 O2 Delivery Room Air Room Air O2 Flow Rate 12/12/19 12/12/19 12/12/19 12/12/19 03:32 07:59 09:00 09:00 Temp 98.4 98.3 98.4 98.3 Pulse 77 43 43 43 Resp 16 16 B/P (MAP) 142/86 (104) 152/60 (90) 152/60 152/60 Pulse Ox 92 94 O2 Delivery Room Air Room Air 12/12/19 09:50 Pulse 43 B/P (MAP) 152/60 Intake and Output 12/11/19 12/11/19 12/12/19 15:00 23:00 07:00 Intake Total 190 ml 180 ml 120 ml Output Total 250 ml 100 ml Balance -60 ml 80 ml 120 ml ESAU REYNOLDS MD Dec 12, 2019 11:27
[2019-12-12 11:59] VITALS: BP 146/72
[2019-12-12] MEDS ORDERED: MAGNESIUM SULFATE 2GM 50 ML IV ONE (13:15)
[2019-12-12 15:32] VITALS: BP 138/73
--- NOTE | 2019-12-12 16:37 | PDOC ---
DANYAFLORIDALMAShantalCHANTALE [place] DIRECT SALES CONSULTANT 12/12/19 1636: CARDIO Progress Notes Date and Time Date of Service 12/12/2019 Time of Evaluation 1250 Subjective Subjective: No Chest Pain, No shortness of breath, No Palpitations Vitals Vitals Vital Signs Date Time Temp Pulse Resp B/P (MAP) Pulse Ox O2 Delivery O2 Flow Rate FiO2 12/12/19 15:32 97.6 45 16 138/73 (94) 92 Room Air 97.6 12/11/19 18:41 Weight Weight [ ] Input and Output Intake and Output Intake and Output 12/12/19 07:00 Intake Total 490 ml Output Total 350 ml Balance 140 ml Intake Oral 490 ml Output Urine Total 350 ml # Voids 1 Physical Exam HEENT: Neck Supple W Full Motion Chest: Symmetric LUNGS: Clear to Auscultation Heart: S1S2, RRR (SR) Abdomen: Soft N/T Extremities: No Edema, No Calf Tenderness Neurology: alert, oriented, follow commands Assessment Assessment 1. Palpitations: due to PVCs 2. Fatigue: potentially related to poor calorie intake 3. Arrhythmia: ranging from frequent unifocal PVCS with PSVT. EF and WM nml 4. Mild hypopmagnesemia 5. Allergic rhinitis/postnasal drip with dry cough. Defer to PCP 6. HTN: controlled 7. Partial thyroidectomy: unclear if taking replacement but TSH on goal 8. Dementia: forgetful, could not remember me at all from yesterday. Spouse also is not reliable accdg to son Recommendations 1. Mg replacement 2. Discussed with RN. Given that pt is forgetful with likely mild dementia, RN will try to contact son for him to accompany pt to office to have [facility]OT place and will arrange the follow at that point. 3. Dietitian consult, discussed increase caloric intake, hydration adequacy and minimizing caffeine intake and avoidance of decongestants. 4. Stop other BP meds, continue with current metoprolol. 5. WIll consider for outpt stress test. KENZIE LEONE MD 12/13/19 0908: CARDIO Progress Notes Plan Plan Late entry for 12/12/2019 Patient seen and examined. Agree with above nurse practitioner note. Supportive care. CHANTALE GUILLORY DIRECT SALES CONSULTANT Dec 12, 2019 16:36 KENZIE LEONE MD Dec 13, 2019 09:08
[2019-12-12] MEDS: ENOXAPARIN 40 MG/0.4 ML SYRINGE. SQ SCH (17:00)
[2019-12-12] MEDS ORDERED: cefTRIAXone IV Push 1 GM VIAL. IVP ONE (17:30)
[2019-12-12 19:30] VITALS: BP 163/76
[2019-12-12] MEDS: DOXYCYCLINE HYCLATE 100 MG TABLET PO SCH (21:49)
[2019-12-12 23:27] VITALS: BP 134/71
[2019-12-13 03:12] VITALS: BP 137/77
[2019-12-13 07:00] VITALS: BP 133/74
--- NOTE | 2019-12-13 08:20 | PDOC ---
PROGRESS NOTES History of Present Illness History of Present Illness VTE Prophylaxis Ordered VTE Prophylaxis Devices: Yes VTE Pharmacological Prophylaxi: Yes discharge dx Assessment/Plan impression Palpitations generalized weakness Essential hypertension Hypomagnesemia replace Chronic kidney disease stage II bradycardia, monitor SEVERE PROTEIN-CALORIC MALNUTRITION PLAN ECHO ADMIT TELE CARDIOLOGY following REDUCE CAFFEINE INTAKE [facility]OT to be arrange to note PVC burden change to atenolol, d/c metoprolol dvt prophylaxis mag-ox 400mg po bid d/c today to home d/c planning 28 min Vitals Vitals Vital Signs Date Time Temp Pulse Resp B/P (MAP) Pulse Ox O2 Delivery O2 Flow Rate FiO2 12/13/19 03:12 98.2 75 16 137/77 (97) 94 Room Air 98.2 12/12/19 08:00 2.0 Physical Exam General: Alert, Oriented X3, Cooperative, No acute distress Heart: Regular rate (SR), Normal S1, Normal S2, Other (2/6 systolic murmur to LLs border) Abdomen: Normal bowel sounds, Soft Extremities: No cyanosis, No edema Skin: No breakdown, No significant lesion Comment Review of Relevant I have reviewed the following items jhonny (where applicable) has been applied. Labs Laboratory Tests Test 12/11/19 14:45 Urine Collection Type Unknown Urine Color Yellow Urine Clarity Turbid Urine pH 8.0 Urine Specific [place] 1.020 Urine Protein Negative mg/dL (NEG-TRACE) Urine Glucose (UA) Negative mg/dL (NEG) Urine Ketones (Stick) Negative mg/dL (NEG) Urine Blood Negative (NEG) Urine Nitrite Negative (NEG) Urine Bilirubin Negative (NEG) Urine Urobilinogen Dipstick 0.2 mg/dL (0.2 mg/dL) Urine Leukocyte Esterase Small (NEG) Urine RBC 0 /HPF (0-2) Urine WBC 0 /HPF (0-4) Urine Amorphous Sediment Present /HPF Urine Bacteria 0 /HPF (0-FEW) Medications Current Medications Magnesium Sulfate 50 ml @ 25 mls/hr 1X ONCE IV Last administered on 12/11/19at 07:00; Start 12/11/19 at 04:45; Stop 12/11/19 at 06:44; Status DC Ondansetron HCl (Zofran) 4 mg PRN Q8HRS PRN IV NAUSEA/VOMITING; Start 12/11/19 at 06:00; Stop 12/12/19 at 05:59; Status DC Metoprolol Tartrate (Lopressor) 50 mg 1X ONCE PO Last administered on 12/11/19at 09:42; Start 12/11/19 at 09:15; Stop 12/11/19 at 09:16; Status DC Metoprolol Tartrate (Lopressor) 50 mg BID PO Last administered on 12/12/19 21:50; Start 12/11/19 at 21:00 Amlodipine Besylate (Norvasc) 5 mg DAILY PO Last administered on 12/12/19at 09:00; Start 12/12/19 at 09:00 Aspirin (Ecotrin) 81 mg BID PO Last administered on 12/12/19at 21:50; Start 12/11/19 at 21:00 Atenolol (Tenormin) 25 mg DAILY PO Last administered on 12/12/19 09:50; Start 12/12/19 at 09:00 Raloxifene HCl (Evista) 60 mg DAILY PO Last administered on 12/12/19 09:49; Start 12/12/19 at 09:00 Zolpidem Tartrate (Ambien) 5 mg PRN QHS PRN PO INSOMNIA; Start 12/11/19 at 17:00 Ascorbic Acid (Vitamin C) 1,000 mg DAILY PO Last administered on 12/12/19 09:51; Start 12/12/19 at 09:00 Magnesium Oxide (Magnesium Oxide) 400 mg DAILY PO Last administered on 12/12/19 09:49; Start 12/12/19 at 09:00 Multivitamins (Thera M Plus) 1 tab DAILY PO Last administered on 12/12/19 09:51; Start 12/12/19 at 09:00 Fish Oil (Fish Oil) 1,000 mg BID PO Last administered on 12/12/19 21:49; Start 12/11/19 at 21:00 Sodium Chloride (Normal Saline Flush) 3 ml QSHIFT PRN IV AFTER MEDS AND BLOOD DRAWS; Start 12/11/19 at 17:00 Ondansetron HCl (Zofran) 4 mg PRN Q4HRS PRN IV NAUSEA/VOMITING; Start 12/11/19 at 17:00 Acetaminophen (Tylenol) 650 mg PRN Q4HRS PRN PO TEMP OVER 100.4F OR MILD PAIN; Start 12/11/19 at 17:00 Al Hydroxide/Mg Hydroxide (Mylanta Plus Xs) 30 ml PRN DAILY PRN PO HEARTBURN / GAS; Start 12/11/19 at 17:00 Docusate Sodium (Colace) 100 mg PRN BID PRN PO CONSTIPATION; Start 12/11/19 at 17:00 Albuterol Sulfate (Ventolin Neb Soln) 2.5 mg PRN Q4HRS PRN NEB SHORTNESS OF BREATH; Start 12/11/19 at 17:00 Guaifenesin (Robitussin) 200 mg PRN Q4HRS PRN PO COUGH; Start 12/11/19 at 17:00 Lorazepam (Ativan) 0.5 mg PRN Q4HRS PRN PO ANXIETY / AGITATION; Start 12/11/19 at 17:00 Enoxaparin Sodium (Lovenox 40mg Syringe) 40 mg Q24H SQ Last administered on 12/11/19at 18:33; Start 12/11/19 at 17:00 Magnesium Sulfate 50 ml @ 25 mls/hr 1X ONCE IV Last administered on 12/12/19at 15:02; Start 12/12/19 at 13:15; Stop 12/12/19 at 15:14; Status DC Magnesium Oxide (Magnesium Oxide) 400 mg BID PO Last administered on 12/12/19at 21:50; Start 12/12/19 at 21:00 Ceftriaxone Sodium (Rocephin) 1 gm 1X ONCE IVP Last administered on 12/12/19at 18:44; Start 12/12/19 at 17:30; Stop 12/12/19 at 17:31; Status DC Doxycycline Hyclate (Vibra-Tab) 100 mg BID PO Last administered on 12/12/19at 21:49; Start 12/12/19 at 21:00 Active Scripts Active Magnesium (Magnesium Oxide) 400 Mg Capsule 1 Cap PO DAILY 30 Days Reported Multi Vitamin Daily (Multivitamin) 1 Each Tablet 1 Tab PO DAILY 30 Days [place]-3 + Vitamin D3 Tab Chew (Om-3/Dha/Epa/Fish Oil/Vit D3) 1 Each Tab.chew 1 Each PO BID Caltrate 600 + D Tablet (Calcium Carbonate/Vitamin D3) 1 Each Tablet 1 Each PO BID Nataliia-C 1,000 Mg Tablet (Ascorbate Calcium/Bioflavonoid) 1 Each Tablet 1 Each PO DAILY Aspir-Low (Aspirin) 81 Mg Tablet. 1 Tab PO BID Zolpidem Tartrate 5 Mg Tablet 5 Mg PO PRN QHS PRN Raloxifene HCl 60 Mg Tablet 60 Mg PO DAILY Amlodipine Besylate 5 Mg Tablet 5 Mg PO DAILY Hydrochlorothiazide Tablet (Hydrochlorothiazide) 12.5 Mg Tablet 12.5 Mg PO DAILY Atenolol 25 Mg Tablet 1 Tab PO DAILY Vitals/I & O Vital Sign - Last 24 Hours 12/12/19 12/12/19 12/12/19 12/12/19 09:00 09:00 09:50 11:59 Temp 97.5 97.5 Pulse 43 43 43 43 Resp 16 B/P (MAP) 152/60 152/60 152/60 146/72 (96) Pulse Ox 94 O2 Delivery Room Air 12/12/19 12/12/19 12/12/19 12/12/19 15:32 19:30 20:15 21:50 Temp 97.6 97.5 97.6 97.5 Pulse 45 80 80 Resp 16 20 B/P (MAP) 138/73 (94) 163/76 (105) 163/76 Pulse Ox 92 95 O2 Delivery Room Air Room Air Room Air 12/12/19 12/13/19 23:27 03:12 Temp 98.0 98.2 98.0 98.2 Pulse 71 75 Resp 16 16 B/P (MAP) 134/71 (92) 137/77 (97) Pulse Ox 94 94 O2 Delivery Room Air Room Air Intake and Output 0 12/12/19 12/12/19 12/13/19 15:00 23:00 07:00 Intake Total 320 ml 200 ml 400 ml Balance 320 ml 200 ml 400 ml Nutrition Consultation Dietary Evaluation: Recommendations by RD: Dietary education by RD, Increase Calorie Intake, Protein supplementation Comments: ensure q day Expected Outcomes/Goals: to meet >75% est nutr needs Malnutrition Findings: Body Fat Depletion (Non Severe: Mod to Severe Weight Status: Underweight ESAU REYNOLDS MD Dec 13, 2019 08:20
[2019-12-13] MEDS: MAGNESIUM OXIDE 400 MG TABLET PO SCH ×2 (09:00→09:07)
[2019-12-13] MEDS: MULTIVITAMIN with MINERAL TABLET. PO SCH (09:05)
[2019-12-13] MEDS: OMEGA-3 FATTY ACIDS/FISH OIL 1,000 MG CAPSULE. PO SCH (09:06)
[2019-12-13] MEDS: METOPROLOL TART IMMED RELEASE 50 MG TABLET. PO SCH (09:06)
[2019-12-13] MEDS: ATENOLOL 25 MG TABLET. PO SCH (09:06)
[2019-12-13] MEDS: RALOXIFENE 60 MG TABLET. PO SCH (09:07)
[2019-12-13] MEDS: ASPIRIN ENTERIC COATED 81 MG TABLET.DR. PO SCH (09:07)
[2019-12-13] MEDS: DOXYCYCLINE HYCLATE 100 MG TABLET PO SCH (09:07)
[2019-12-13] MEDS: amLODIPine BESYLATE 5 MG TABLET PO SCH (09:07)
[2019-12-13] MEDS: ASCORBIC ACID 500 MG TABLET PO SCH (09:08)
[2019-12-13 11:00] VITALS: BP 128/72
--- NOTE | 2019-12-13 13:32 | PDOC3 ---
Discharge Summary Date of Admission: Dec 11, 2019 Date of Discharge: Dec 13, 2019 Follow-Up: 3-5 days Admitting Diagnosis comment: discharge dx Assessment/Plan impression Palpitations generalized weakness Essential hypertension Hypomagnesemia replace Chronic kidney disease stage II bradycardia, monitor SEVERE PROTEIN-CALORIC MALNUTRITION PLAN ECHO ADMIT TELE CARDIOLOGY following REDUCE CAFFEINE INTAKE [facility] to be arrange to note PVC burden change to atenolol, d/c metoprolol dvt prophylaxis mag-ox 400mg po bid d/c today to home d/c planning 28 min Vitals Vitals Vital Signs Date Time Temp Pulse Resp B/P (MAP) Pulse Ox O2 Delivery O2 Flow Rate FiO2 12/13/19 03:12 98.2 75 16 137/77 (97) 94 Room Air 98.2 12/12/19 08:00 2.0 Physical Exam General: Alert, Oriented X3, Cooperative, No acute distress Heart: Regular rate (SR), Normal S1, Normal S2, Other (2/6 systolic murmur to LLs border) Abdomen: Normal bowel sounds, Soft Extremities: No cyanosis, No edema Skin: No breakdown, No significant lesion FINAL DIAGNOSIS discharge dx Assessment/Plan impression Palpitations generalized weakness Essential hypertension Hypomagnesemia replace Chronic kidney disease stage II bradycardia, monitor SEVERE PROTEIN-CALORIC MALNUTRITION PLAN ECHO ADMIT TELE CARDIOLOGY following REDUCE CAFFEINE INTAKE [facility] to be arrange to note PVC burden change to atenolol, d/c metoprolol dvt prophylaxis mag-ox 400mg po bid d/c today to home d/c planning 28 min Vitals Vitals Vital Signs Date Time Temp Pulse Resp B/P (MAP) Pulse Ox O2 Delivery O2 Flow Rate FiO2 12/13/19 03:12 98.2 75 16 137/77 (97) 94 Room Air 98.2 12/12/19 08:00 2.0 Physical Exam General: Alert, Oriented X3, Cooperative, No acute distress Heart: Regular rate (SR), Normal S1, Normal S2, Other (2/6 systolic murmur to LLs border) Abdomen: Normal bowel sounds, Soft Extremities: No cyanosis, No edema Skin: No breakdown, No significant lesion Brief Hospital Course Ms. Gutiérrez is a 84 old [sex] who presented with [ palptations, caffeine toxicity ] CONDITION AT DISCHARGE: Improved Discharge Medications Current Medications Magnesium Sulfate 50 ml @ 25 mls/hr 1X ONCE IV Last administered on 12/11/19at 07:00; Start 12/11/19 at 04:45; Stop 12/11/19 at 06:44; Status DC Ondansetron HCl (Zofran) 4 mg PRN Q8HRS PRN IV NAUSEA/VOMITING; Start 12/11/19 at 06:00; Stop 12/12/19 at 05:59; Status DC Metoprolol Tartrate (Lopressor) 50 mg 1X ONCE PO Last administered on 12/11/19at 09:42; Start 12/11/19 at 09:15; Stop 12/11/19 at 09:16; Status DC Metoprolol Tartrate (Lopressor) 50 mg BID PO Last administered on 12/13/19at 09:06; Start 12/11/19 at 21:00 Amlodipine Besylate (Norvasc) 5 mg DAILY PO Last administered on 12/13/19at 09:07; Start 12/12/19 at 09:00 Aspirin (Ecotrin) 81 mg BID PO Last administered on 12/13/19 09:07; Start 12/11/19 at 21:00 Atenolol (Tenormin) 25 mg DAILY PO Last administered on 12/13/19at 09:06; Start 12/12/19 at 09:00 Raloxifene HCl (Evista) 60 mg DAILY PO Last administered on 12/13/19 09:07; Start 12/12/19 at 09:00 Zolpidem Tartrate (Ambien) 5 mg PRN QHS PRN PO INSOMNIA; Start 12/11/19 at 17:00 Ascorbic Acid (Vitamin C) 1,000 mg DAILY PO Last administered on 12/13/19 09:08; Start 12/12/19 at 09:00 Magnesium Oxide (Magnesium Oxide) 400 mg DAILY PO Last administered on 12/12/19 09:49; Start 12/12/19 at 09:00 Multivitamins (Thera M Plus) 1 tab DAILY PO Last administered on 12/13/19 09:05; Start 12/12/19 at 09:00 Fish Oil (Fish Oil) 1,000 mg BID PO Last administered on 2/14/20at 09:06; Start 12/11/19 at 21:00 Sodium Chloride (Normal Saline Flush) 3 ml QSHIFT PRN IV AFTER MEDS AND BLOOD DRAWS; Start 12/11/19 at 17:00 Ondansetron HCl (Zofran) 4 mg PRN Q4HRS PRN IV NAUSEA/VOMITING; Start 12/11/19 at 17:00 Acetaminophen (Tylenol) 650 mg PRN Q4HRS PRN PO TEMP OVER 100.4F OR MILD PAIN; Start 12/11/19 at 17:00 Al Hydroxide/Mg Hydroxide (Mylanta Plus Xs) 30 ml PRN DAILY PRN PO HEARTBURN / GAS; Start 12/11/19 at 17:00 Docusate Sodium (Colace) 100 mg PRN BID PRN PO CONSTIPATION; Start 12/11/19 at 17:00 Albuterol Sulfate (Ventolin Neb Soln) 2.5 mg PRN Q4HRS PRN NEB SHORTNESS OF BREATH; Start 12/11/19 at 17:00 Guaifenesin (Robitussin) 200 mg PRN Q4HRS PRN PO COUGH; Start 12/11/19 at 17:00 Lorazepam (Ativan) 0.5 mg PRN Q4HRS PRN PO ANXIETY / AGITATION; Start 12/11/19 at 17:00 Enoxaparin Sodium (Lovenox 40mg Syringe) 40 mg Q24H SQ Last administered on 12/11/19at 18:33; Start 12/11/19 at 17:00 Magnesium Sulfate 50 ml @ 25 mls/hr 1X ONCE IV Last administered on 12/12/19at 15:02; Start 12/12/19 at 13:15; Stop 12/12/19 at 15:14; Status DC Magnesium Oxide (Magnesium Oxide) 400 mg BID PO Last administered on 12/13/19at 09:07; Start 12/12/19 at 21:00 Ceftriaxone Sodium (Rocephin) 1 gm 1X ONCE IVP Last administered on 12/12/19at 18:44; Start 12/12/19 at 17:30; Stop 12/12/19 at 17:31; Status DC Doxycycline Hyclate (Vibra-Tab) 100 mg BID PO Last administered on 12/13/19at 09:07; Start 12/12/19 at 21:00 Active Scripts Active Magnesium (Magnesium Oxide) 400 Mg Capsule 1 Cap PO DAILY 30 Days Reported Multi Vitamin Daily (Multivitamin) 1 Each Tablet 1 Tab PO DAILY 30 Days Enders-3 + Vitamin D3 Tab Chew (Om-3/Dha/Epa/Fish Oil/Vit D3) 1 Each Tab.chew 1 Each PO BID Caltrate 600 + D Tablet (Calcium Carbonate/Vitamin D3) 1 Each Tablet 1 Each PO BID Nataliia-C 1,000 Mg Tablet (Ascorbate Calcium/Bioflavonoid) 1 Each Tablet 1 Each PO DAILY Aspir-Low (Aspirin) 81 Mg Tablet.dr 1 Tab PO BID Zolpidem Tartrate 5 Mg Tablet 5 Mg PO PRN QHS PRN Raloxifene HCl 60 Mg Tablet 60 Mg PO DAILY Amlodipine Besylate 5 Mg Tablet 5 Mg PO DAILY Hydrochlorothiazide Tablet (Hydrochlorothiazide) 12.5 Mg Tablet 12.5 Mg PO DAILY Atenolol 25 Mg Tablet 1 Tab PO DAILY Vital Signs Vital Signs Date Time Temp Pulse Resp B/P (MAP) Pulse Ox O2 Delivery O2 Flow Rate FiO2 12/13/19 11:00 98.3 65 18 128/72 (90) 95 Room Air 98.3 12/12/19 08:00 2.0 Labs Laboratory Tests Test 12/11/19 14:45 Urine Collection Type Unknown Urine Color Yellow Urine Clarity Turbid Urine pH 8.0 Urine Specific [place] 1.020 Urine Protein Negative mg/dL (NEG-TRACE) Urine Glucose (UA) Negative mg/dL (NEG) Urine Ketones (Stick) Negative mg/dL (NEG) Urine Blood Negative (NEG) Urine Nitrite Negative (NEG) Urine Bilirubin Negative (NEG) Urine Urobilinogen Dipstick 0.2 mg/dL (0.2 mg/dL) Urine Leukocyte Esterase Small (NEG) Urine RBC 0 /HPF (0-2) Urine WBC 0 /HPF (0-4) Urine Amorphous Sediment Present /HPF Urine Bacteria 0 /HPF (0-FEW) Allergies Allergies Coded Allergies Type Severity Reaction Last Updated Verified No Known Drug Allergies 12/06/19 No Disposition/Orders: D/C to Home ESAU REYNOLDS MD Dec 13, 2019 13:32
[2019-12-13] MEDS ORDERED: DOXY100T PO (13:36)
[2019-12-13] MEDS ORDERED: MAG30ORA2 PO (13:36)
[2019-12-13] MEDS ORDERED: DOCU-153 PO (13:36)
[2019-12-13] MEDS ORDERED: ACET325T9 PO (13:36)
[2019-12-13] MEDS ORDERED: ALBU2.5V8 NEB (13:36)
[2019-12-13] MEDS ORDERED: GUAI100L12 PO (13:36)
[2019-12-13] MEDS ORDERED: MAGN400T44 PO (13:36)
[2019-12-13 14:02] LABS: BASO % 1 % (0-3); EOS # 0.1 x10^3/uL (0.0-0.7); EOS % 1 % (0-3); HEMATOCRIT 41.3 % (36.0-47.0); HEMOGLOBIN 14.3 g/dL (12.0-15.5); LYMPH # 0.9 x10^3/uL (1.0-4.8); LYMPH % 11 % (24-48); MEAN CORPUSCULAR HEMOGLOBIN 34 pg (25-35); MEAN CORPUSCULAR HGB CONC 35 g/dL (31-37); MEAN CORPUSCULAR VOLUME 97 fL (79-100); MONO # 0.6 x10^3/uL (0.0-1.1); MONO % 8 % (0-9); NEUT # 6.5 x10^3/uL (1.8-7.7); NEUT % 80 % (31-73); PLATELET COUNT 281 x10^3/uL (140-400); RED BLOOD COUNT 4.25 x10^6/uL (3.50-5.40); RED CELL DISTRIBUTION WIDTH 13.4 % (11.5-14.5); WHITE BLOOD COUNT 8.1 x10^3/uL (4.0-11.0)
--- NOTE | 2019-12-13 14:48 | NUR ---
Pt discharged to home with . After discharge, pt was instructed to go see Anayeli at the cardiology office to have a 2 week monitor applied. Discharge teaching reviewed with . He verbalized understanding.
[2019-12-13 15:01] LABS: CALCIUM 8.3 mg/dL (8.5-10.1); GFR 52.6; MAGNESIUM 2.2 mg/dL (1.8-2.4); POTASSIUM 4.3 mmol/L (3.5-5.1)
[2019-12-13] MEDS ORDERED: METO50TA6 PO (15:35)
== END 2019-12-13 14:48 | disposition home or self-care (01) | DRG 308 ==
LOC: ER 01:52 → ED HOLD 04:00 → 6 SOUTH 21:48
PROVIDERS: ADMIT Internal Medicine; ATTEND Internal Medicine
DX: I49.3 Ventricular premature depolarization (principal); E43 Unspecified severe protein-calorie malnutrition; Z68.1 Body mass index [BMI] 19.9 or less, adult; E83.42 Hypomagnesemia; E89.0 Postprocedural hypothyroidism; F03.90 Unspecified dementia, unspecified severity, without behavioral disturbance, psychotic disturbance, mood disturbance, and anxiety; I12.9 Hypertensive chronic kidney disease with stage 1 through stage 4 chronic kidney disease, or unspecified chronic kidney disease; I48.91 Unspecified atrial fibrillation; J30.9 Allergic rhinitis, unspecified; M81.0 Age-related osteoporosis without current pathological fracture; N18.2 Chronic kidney disease, stage 2 (mild); Z82.49 Family history of ischemic heart disease and other diseases of the circulatory system; Z87.891 Personal history of nicotine dependence; M19.90 Unspecified osteoarthritis, unspecified site; T43.615A Adverse effect of caffeine, initial encounter
CPT/HCPCS: 36415; 71045; 80048; 80053; 80061; 81001; 83735; 83880; 84443; 84484; 85025; 93005; 93306; 96372; 99285; J0696; J1650; J3475; G0378